=== PATIENT | female | born 1975 | race Caucasian/White ===

== ENCOUNTER 2017-01-05 13:44 | Outpatient (CLI) | payer OTHER, MEDICAID | END 2017-01-05 23:59 | DX: Z11.3 Encounter for screening for infections with a predominantly sexual mode of transmission (principal) ==

== ENCOUNTER 2017-03-22 08:42 | Outpatient (CLI) | payer OTHER, MEDICAID | END 2017-03-22 08:43 | disposition home or self-care (01) | DX: R10.11 Right upper quadrant pain (principal) ==

== ENCOUNTER 2017-04-23 11:52 | Outpatient (CLI) | payer OTHER, MEDICAID ==
--- NOTE | 2017-04-23 14:21 | Mammography Report ---
DIGITAL DIAGNOSTIC BILATERAL MAMMOGRAM: 04/23/2017 CLINICAL INDICATION: Bilateral breast pain. TECHNIQUE: Bilateral CC, MLO, true lateral views. The patient described the pain as extending from the axilla to the nipple on the right and from the axilla across the superior half of the left breast . As such, no markers were placed. COMPARISON: 09/04/2015, 10/12/2013, 10/10/2013, 03/18/2011. FINDINGS: The breasts again demonstrate heterogeneously dense fibroglandular parenchyma bilaterally. Intramammary lymph nodes are stable. A few coarse, typically benign calcifications are present. N o suspicious masses, clustered microcalcifications, or regions of architectural distortion are identi fied. IMPRESSION: BENIGN FINDINGS. RECOMMENDATION: Routine annual screening unless otherwise clinically indicated. BIRADS CATEGORY 2 - BENIGN FINDINGS. STANDARD QUALIFYING STATEMENTS 1. This examination was reviewed with the aid of Computer-Aided Detection (CAD). 2. A negative or benign imaging report should not delay biopsy if clinically suspicious findings are present. Consider surgical consultation if warranted. More than 5% of cancers are not identified by i maging. 3. Dense breasts may obscure an underlying neoplasm. JOB #: [id number] EXT JOB #:
== END 2017-04-23 11:53 | disposition home or self-care (01) ==
LOC: DI 11:52
PROVIDERS: ATTEND Family Medicine
DX: N64.4 Mastodynia (principal)
CPT/HCPCS: 77066

== ENCOUNTER 2017-05-18 14:40 | Outpatient (CLI) | payer OTHER, MEDICAID ==
[2017-05-18 20:19] LABS: ALBUMIN/GLOBULIN RATIO 1.2 (1.0-2.2); BILIRUBIN,TOTAL 0.2 mg/dL (0.2-1.0); BUN - BLOOD UREA NITROGEN 20 mg/dL (6-20); CALCIUM 8.9 mg/dL (8.5-10.3); CARBON DIOXIDE - CO2 23 mmol/L (21-32); CHLORIDE 106 mmol/L (101-111); CREATININE 1.1 mg/dL (0.4-1.0); GFR - MDRD 55 (>89); GLUCOSE 82 mg/dL (70-100); POTASSIUM 4.1 mmol/L (3.5-5.0); SODIUM 136 mmol/L (135-145); TOTAL PROTEIN 7.3 g/dL (6.7-8.2)
[2017-05-18 20:59] LABS: THYROID STIMULATING HORMONE 1.65 uIU/mL (0.34-5.60)
[2017-05-18 21:08] LABS: FOLLICLE STIMULATING HORMONE 5.13 mIU/mL
== END 2017-05-18 14:41 | disposition home or self-care (01) ==
LOC: LAB.WCP 14:40
PROVIDERS: ATTEND Family Medicine
DX: R10.11 Right upper quadrant pain (principal)
CPT/HCPCS: 36415; 80053; 83001; 84443

== ENCOUNTER 2017-07-07 15:40 | Outpatient (CLI) | payer OTHER, MEDICAID ==
[2017-07-07 19:05] LABS: BASOPHILS # (AUTO) 0.1 10^3/uL (0.0-0.1); BASOPHILS % (AUTO) 0.8 %; EOSINOPHILS # (AUTO) 0.4 10^3/uL (0.0-0.7); HCT - HEMATOCRIT 44.3 % (37.0-47.0); HGB - HEMOGLOBIN 14.5 g/dL (12.0-16.0); LYMPHOCYTES # (AUTO) 2.5 10^3/uL (1.5-3.5); LYMPHOCYTES % (AUTO) 20.3 %; MEAN CORPUSCULAR HEMOGLOBIN 29.4 pg (27.0-31.0); MEAN CORPUSCULAR HGB CONC 32.7 g/dL (32.0-36.0); MEAN PLATELET VOLUME 9.6 fL (7.9-10.8); MONOCYTES % (AUTO) 8.2 %; NEUTROPHILS # (AUTO) 8.3 10^3/uL (1.5-6.6); NEUTROPHILS % (AUTO) 67.7 %; NUCLEATED RED BLOOD CELLS AUTO 0.1 /100WBC; RED BLOOD COUNT 4.92 10^6/uL (4.20-5.40); RED CELL DISTRIBUTION WIDTH 14.6 % (12.0-15.0); UNCORRECTED WHITE BLOOD COUNT 12.2 x10^3/uL; WHITE BLOOD COUNT 12.2 x10^3/uL (4.8-10.8)
[2017-07-07 19:21] LABS: ALBUMIN/GLOBULIN RATIO 1.2 (1.0-2.2); BILIRUBIN,TOTAL 0.6 mg/dL (0.2-1.0); BUN - BLOOD UREA NITROGEN 15 mg/dL (6-20); CALCIUM 9.1 mg/dL (8.5-10.3); CARBON DIOXIDE - CO2 23 mmol/L (21-32); CHLORIDE 105 mmol/L (101-111); GFR - MDRD 61 (>89); GLUCOSE 83 mg/dL (70-100); POTASSIUM 4.2 mmol/L (3.5-5.0); SODIUM 136 mmol/L (135-145); TOTAL PROTEIN 7.2 g/dL (6.7-8.2)
[2017-07-07 19:50] LABS: THYROID STIMULATING HORMONE 1.48 uIU/mL (0.34-5.60)
[2017-07-08 10:11] LABS: TEST RESULT REPORT (())
== END 2017-07-07 15:41 | disposition home or self-care (01) ==
LOC: LAB.WCP 15:40
PROVIDERS: ATTEND Family Medicine
DX: R41.3 Other amnesia (principal)
CPT/HCPCS: 36415; 80050; 80306; 81599; 82607; 86140; 86592

== ENCOUNTER 2017-07-26 13:14 | Outpatient (CLI) | payer OTHER, MEDICAID ==
--- NOTE | 2017-07-26 15:20 | MRI Report ---
EXAM: MRI BRAIN WITHOUT CONTRAST EXAM DATE: 07/26/2017 02:26 PM. CLINICAL HISTORY: MEMORY LOSS, PSEUDOTUMOR CEREBRI. COMPARISON: MRI brain 12/20/2010 TECHNIQUE: Multiplanar, multisequence T1-weighted and fluid-sensitive MR sequences of the brain were performed. Sequences optimized for routine evaluation. Other: None. IV Contrast: None. FINDINGS: Brain Volume: Normal for age. Parenchyma/Dura: No masses, infarcts, or hemorrhage. No significant white matter disease. No parenchy mal microhemorrhages. Ventricles/Cisterns: Normal. No hydrocephalus. Sinuses: Moderate mucous retention cyst/polyps within the maxillary sinuses bilaterally. Bones: Normal. Other: There is very subtle flattening of the posterior sclera bilaterally (series 601 image 10), a n onspecific finding but seen with idiopathic intracranial hypertension (pseudotumor cerebri). IMPRESSION: 1. No evidence of an acute or subacute infarct, intracranial hemorrhage, mass/mass effect, midline sh ift, or hydrocephalus. No significant white matter disease. 2. Very subtle flattening of the posterior sclera bilaterally (series 601 image 10), a nonspecific fi nding but seen with idiopathic intracranial hypertension (pseudotumor cerebri). [facility] Referring Provider Line: [phone] SITE ID: [id number]
== END 2017-07-26 13:15 | disposition home or self-care (01) ==
LOC: DI 13:14
PROVIDERS: ATTEND Family Medicine
DX: G93.2 Benign intracranial hypertension (principal); R41.3 Other amnesia
CPT/HCPCS: 70551

== ENCOUNTER 2017-09-03 13:24 | Outpatient (CLI) | payer OTHER, MEDICAID ==
[2017-09-03 18:46] LABS: BASOPHILS # (AUTO) 0.1 10^3/uL (0.0-0.1); BASOPHILS % (AUTO) 1.1 %; EOSINOPHILS # (AUTO) 0.3 10^3/uL (0.0-0.7); EOSINOPHILS % (AUTO) 3.2 %; HCT - HEMATOCRIT 43.5 % (37.0-47.0); LYMPHOCYTES # (AUTO) 2.6 10^3/uL (1.5-3.5); LYMPHOCYTES % (AUTO) 24.9 %; MEAN CORPUSCULAR HEMOGLOBIN 29.4 pg (27.0-31.0); MEAN CORPUSCULAR HGB CONC 32.2 g/dL (32.0-36.0); MEAN CORPUSCULAR VOLUME 91.1 fL (81.0-99.0); MONOCYTES # (AUTO) 0.8 10^3/uL (0.0-1.0); MONOCYTES % (AUTO) 7.7 %; NEUTROPHILS # (AUTO) 6.7 10^3/uL (1.5-6.6); NEUTROPHILS % (AUTO) 63.1 %; NUCLEATED RED BLOOD CELLS AUTO 0.1 /100WBC; RED BLOOD COUNT 4.78 10^6/uL (4.20-5.40); RED CELL DISTRIBUTION WIDTH 14.4 % (12.0-15.0); UNCORRECTED WHITE BLOOD COUNT 10.6 x10^3/uL; WHITE BLOOD COUNT 10.6 x10^3/uL (4.8-10.8)
== END 2017-09-03 13:25 | disposition home or self-care (01) ==
LOC: LAB.WCP 13:24
PROVIDERS: ATTEND Family Medicine
DX: D72.829 Elevated white blood cell count, unspecified (principal)
CPT/HCPCS: 36415; 85025

== ENCOUNTER 2017-11-11 16:38 | Outpatient (CLI) | payer OTHER, MEDICAID | END 2017-11-11 16:39 | disposition critical access hospital (66) | LOC: EMS 16:38 | PROVIDERS: ATTEND Surgery | DX: S61.217A Laceration without foreign body of left little finger without damage to nail, initial encounter (principal); W25.XXXA Contact with sharp glass, initial encounter; Y93.E9 Activity, other interior property and clothing maintenance; Y92.039 Unspecified place in apartment as the place of occurrence of the external cause | CPT/HCPCS: A0425; A0429 ==

== ENCOUNTER 2017-11-11 17:11 | Emergency (ER) | payer OTHER, MEDICAID ==
[2017-11-11] MEDS ORDERED: TETANUS/DIPHTHERIA/PERTUSSIS 0.5 ML SYRINGE IM ONE (18:27)
[2017-11-11] MEDS ORDERED: BUFFERED LIDOCAINE 10 ML SYRINGE SUBQ STA (18:27)
--- NOTE | 2017-11-11 18:29 | ED Physician Documentation ---
PD HPI UPPER EXT INJURY - Stated complaint Stated Complaint: FINGER LAC - Chief complaint Chief Complaint: Ext Problem - History obtained from History obtained from: Patient - History of Present Illness Location: Other (Right-handed woman with unknown tetanus status was changing a light bulb today and a broken she has a laceration on the left pinky. No other injuries.) Review of Systems Constitutional: denies: Fever, Chills Throat: reports: Reviewed and negative Respiratory: reports: Reviewed and negative PD PAST MEDICAL HISTORY - Past Medical History Cardiovascular: None Respiratory: Shortness of breath Neuro: Headache/migraine Endocrine/Autoimmune: None GI: Other BAND SPLITTER: None : Other HEENT: Other Psych: Depression, Anxiety Musculoskeletal: Osteoarthritis, Fibromyalgia, Chronic back pain Derm: Rosacea, Other - Past Surgical History General: Other /BAND SPLITTER: Hysterectomy HEENT: Other - Present Medications Home Medications: Ambulatory Orders Medication Instructions Recorded Confirmed Ergocalciferol (Vitamin D2) 2,000 unit ORAL DAILY 04/20/15 11/11/17 [Vitamin D2] Gabapentin [Gralise] 600 mg ORAL TID 04/20/15 11/11/17 Melatonin 3 mg ORAL DAILY 04/20/15 11/11/17 Naproxen Sodium [Aleve] 220 mg ORAL DAILY 04/20/15 11/11/17 Pantoprazole [Protonix] 20 mg ORAL DAILY 04/20/15 11/11/17 Topiramate 75 mg ORAL QPM 04/20/15 11/11/17 traMADol [Ultram] 50 mg ORAL DAILY PRN 04/20/15 11/11/17 Bupropion HCl [Wellbutrin Xl] 300 mg PO DAILY 07/13/17 11/11/17 Dicyclomine [Bentyl] 10 mg PO ONCE PRN 07/13/17 11/11/17 Escitalopram Oxalate [Lexapro] 20 mg PO DAILY 07/13/17 11/11/17 Guanfacine HCl 2 mg PO QPM PRN 07/13/17 11/11/17 Lubiprostone [Amitiza] 8 mcg PO BID 07/13/17 11/11/17 Omeprazole [PriLOSEC] 20 mg PO DAILY 07/13/17 11/11/17 Propranolol [Inderal] 20 mg PO DAILY 07/13/17 11/11/17 - Allergies Allergies/Adverse Reactions: Allergies Allergy/AdvReac Type Severity Reaction Status Date / Time No Known Drug Allergies Allergy Verified 04/20/15 10:41 - Social History Does the pt smoke?: No Smoking Status: Never smoker Does the pt drink ETOH?: No Does the pt have substance abuse?: No - Immunizations Immunizations are current?: Yes PD ED PE NORMAL - Vitals Vital signs reviewed: Yes - General General: Alert and oriented X 3, No acute distress - Extremities Extremities: Other (There is a 1 cm laceration on the ulnar side of the left fifth digit at the level of the PIP without distal neurovascular compromise or evidence of tendon injury.) - Neuro Neuro: Alert and oriented X 3, Normal speech - Psych Psych: Normal mood, Normal affect Results - Vitals Vitals: Vital Signs - 24 hr 11/11/17 17:14 Temperature 36.8 C Heart Rate 100 Respiratory 17 Rate Blood Pressure 122/88 H O2 Saturation 97 Oxygen O2 Source Room air Procedures - Laceration (location) L 5th finger Length in cm: 1 Wound type: Linear Neurovascular status: Sensory intact, Motor intact, Vascular intact Anesthesia: Lidocaine 1% (Digital block with buffered anesthetic, excellent anesthesia) Wound Preparation: Irrigated copiously NS Skin layer closure: Nylon, Interrupted, Size #-0 - enter number (5-0), Sutures - enter # (3) Other: Patient tolerated well, No complications, Neurovascular intact, Tetanus booster given Complexity: Simple Departure - Departure Disposition: 01 Home, Self Care Clinical Impression: Laceration of finger of left hand Qualifiers: Encounter type: initial encounter Finger: little finger Damage to nail status: without damage Foreign body presence: without foreign body Qualified Code(s): S61.217A - Laceration without foreign body of left little finger without damage to nail, initial encounter Condition: Good Record reviewed to determine appropriate education?: Yes Instructions: ED Laceration Hand Comments: Come back for any signs of infection which would include: Redness, swelling, drainage, increased pain, or fevers. Follow-up with your physician in 14 days for suture removal. Your blood pressure was elevated today on check into the emergency department. This does not mean that you have hypertension, it is a common phenomenon to come to the emergency department and have elevated blood pressure. I recommend that you see your primary care physician within the week to have it rechecked when you are feeling better.
[2017-11-11 19:08] VITALS: BP 110/70
== END 2017-11-11 19:15 | disposition home or self-care (01) ==
LOC: EDUNIT# → SUPCPDRO 17:11 → ED 17:11
DX: S61.217A Laceration without foreign body of left little finger without damage to nail, initial encounter (principal); W25.XXXA Contact with sharp glass, initial encounter; Y92.019 Unspecified place in single-family (private) house as the place of occurrence of the external cause; M19.90 Unspecified osteoarthritis, unspecified site; M79.7 Fibromyalgia; R03.0 Elevated blood-pressure reading, without diagnosis of hypertension; Z23 Encounter for immunization
CPT/HCPCS: 12001; 90471; 99283

== ENCOUNTER 2017-11-30 09:26 | Outpatient (CLI) | payer OTHER, MEDICAID ==
[2017-11-30 12:37] LABS: BASOPHILS # (AUTO) 0.1 10^3/uL (0.0-0.1); BASOPHILS % (AUTO) 1.3 %; EOSINOPHILS # (AUTO) 0.4 10^3/uL (0.0-0.7); EOSINOPHILS % (AUTO) 3.4 %; HGB - HEMOGLOBIN 14.6 g/dL (12.0-16.0); LYMPHOCYTES # (AUTO) 2.3 10^3/uL (1.5-3.5); LYMPHOCYTES % (AUTO) 21.7 %; MEAN CORPUSCULAR HEMOGLOBIN 29.1 pg (27.0-31.0); MEAN CORPUSCULAR HGB CONC 32.7 g/dL (32.0-36.0); MEAN PLATELET VOLUME 9.9 fL (7.9-10.8); MONOCYTES % (AUTO) 9.8 %; NEUTROPHILS # (AUTO) 6.6 10^3/uL (1.5-6.6); NEUTROPHILS % (AUTO) 63.8 %; PLT - PLATELET COUNT 280 10^3/uL (130-450); RED BLOOD COUNT 5.03 10^6/uL (4.20-5.40); RED CELL DISTRIBUTION WIDTH 14.6 % (12.0-15.0); WHITE BLOOD COUNT 10.4 x10^3/uL (4.8-10.8)
[2017-11-30 13:01] LABS: ALBUMIN/GLOBULIN RATIO 1.2 (1.0-2.2); BILIRUBIN,TOTAL 0.5 mg/dL (0.2-1.0); CREATININE 1.2 mg/dL (0.4-1.0); TOTAL PROTEIN 7.4 g/dL (6.7-8.2)
== END 2017-11-30 09:27 | disposition home or self-care (01) ==
LOC: LAB.WCP 09:26
PROVIDERS: ATTEND Family Medicine
DX: D72.829 Elevated white blood cell count, unspecified (principal); R53.83 Other fatigue; R40.0 Somnolence; K58.9 Irritable bowel syndrome, unspecified; G93.2 Benign intracranial hypertension
CPT/HCPCS: 36415; 80053; 85025

== ENCOUNTER 2017-12-02 13:25 | Outpatient (CLI) | payer OTHER, MEDICAID ==
[2017-12-02 13:24] LABS: MUDS CUTOFF CONCENTRATIONS CUTOFF CONC BELOW:
[2017-12-02 18:57] LABS: AMPHETAMINE SCREEN,URINE NEGATIVE (NEGATIVE); BENZODIAZEPINES SCREEN, URINE NEGATIVE (NEGATIVE); COCAINE SCREEN URINE NEGATIVE (NEGATIVE); METHADONE SCREEN, URINE NEGATIVE (NEGATIVE); METHAMPHETAMINES SCREEN, URINE NEGATIVE (NEGATIVE); OPIATE SCREEN, URINE NEGATIVE (NEGATIVE); OXYCODONE SCREEN, URINE NEGATIVE (NEGATIVE); PROPOXYPHENE SCREEN, URINE NEGATIVE (NEGATIVE); TRICYCLIC ANTIDEPRESSANT,URINE NEGATIVE (NEGATIVE)
[2017-12-02 19:17] LABS: CHOL/HDL RATIO 5.9 (<4.4); CHOLESTEROL 243 mg/dL; HDL CHOLESTEROL 41 mg/dL; LDL CHOLESTEROL,CALCULATED 169 mg/dL; LDL/HDL RATIO 4.1 (<4.4); VLDL CHOLESTEROL 33 mg/dL
== END 2017-12-02 13:26 | disposition home or self-care (01) ==
LOC: LAB.WCP 13:25
PROVIDERS: ATTEND Psychiatry & Neurology Psychiatry
DX: Z00.00 Encounter for general adult medical examination without abnormal findings (principal); F33.2 Major depressive disorder, recurrent severe without psychotic features; F43.10 Post-traumatic stress disorder, unspecified; F41.9 Anxiety disorder, unspecified; G47.00 Insomnia, unspecified
CPT/HCPCS: 36415; 80061; 80306; 83721; 84443

== ENCOUNTER 2017-12-08 15:29 | Outpatient (CLI) | payer OTHER, MEDICAID ==
--- NOTE | 2017-12-09 12:38 | Ultrasound Report ---
DATE OF SERVICE: 12/08/2017 RENAL ULTRASOUND: 12/08/2017 CLINICAL INDICATION: Chronic kidney disease, stage III. TECHNIQUE: Real-time scanning was performed with branch service representative static images obtained. FINDINGS: The right kidney measures 11.4 x 5.0 x 4.3 cm, and is unremarkable. The left kidney measures 11.6 x 4.7 x 3.7 cm, and demonstrates a 2 cm parapelvic cyst. No hydronephrosis, solid renal lesion, or perinephric collection is seen. Prevoid, the bladder measures 13.9 x 11.1 x 9.3 cm, yielding a prevoid volume of 750 mL The bladder wall appears normal. Bilateral ureteral jets are visualized. Postvoid residual was 14 mL IMPRESSION: INCIDENTAL LEFT PARAPELVIC CYST. TD: 12/09/2017 12:36
== END 2017-12-08 15:30 | disposition home or self-care (01) ==
LOC: DI 15:29
PROVIDERS: ATTEND Family Medicine
DX: N18.3 Chronic kidney disease, stage 3 (moderate) (principal)
CPT/HCPCS: 76770

== ENCOUNTER 2018-03-14 08:00 | Outpatient (CLI) | payer OTHER, MEDICAID ==
[2018-03-14 18:58] LABS: BASOPHILS # (AUTO) 0.1 10^3/uL (0.0-0.1); BASOPHILS % (AUTO) 0.7 %; EOSINOPHILS # (AUTO) 0.2 10^3/uL (0.0-0.7); EOSINOPHILS % (AUTO) 1.7 %; HGB - HEMOGLOBIN 14.2 g/dL (12.0-16.0); LYMPHOCYTES % (AUTO) 19.1 %; MEAN CORPUSCULAR HEMOGLOBIN 28.7 pg (27.0-31.0); MEAN CORPUSCULAR HGB CONC 31.3 g/dL (32.0-36.0); MEAN CORPUSCULAR VOLUME 91.6 fL (81.0-99.0); MEAN PLATELET VOLUME 9.4 fL (7.9-10.8); MONOCYTES # (AUTO) 0.9 10^3/uL (0.0-1.0); MONOCYTES % (AUTO) 8.3 %; NEUTROPHILS # (AUTO) 7.5 10^3/uL (1.5-6.6); NEUTROPHILS % (AUTO) 70.2 %; PLT - PLATELET COUNT 309 10^3/uL (130-450); RED BLOOD COUNT 4.96 10^6/uL (4.20-5.40); RED CELL DISTRIBUTION WIDTH 15.3 % (12.0-15.0); WHITE BLOOD COUNT 10.6 x10^3/uL (4.8-10.8)
[2018-03-14 19:08] LABS: CALCIUM 9.2 mg/dL (8.5-10.3)
== END 2018-03-14 08:01 | disposition home or self-care (01) ==
LOC: LAB.WCP 08:00
PROVIDERS: ATTEND Family Medicine
DX: N18.3 Chronic kidney disease, stage 3 (moderate) (principal)
CPT/HCPCS: 36415; 80048; 85025

== ENCOUNTER 2018-08-24 18:14 | Emergency (ER) | payer OTHER, MEDICAID ==
--- NOTE | 2018-08-24 18:57 | XRAY Report ---
Reason: productive cough Procedure Date: 08/24/2018 Accession Number: [id number] / [id number] Procedure: XR - Chest 2 View X-Ray CPT Code: 41765 FULL RESULT: EXAM: CHEST RADIOGRAPHY EXAM DATE: 08/24/2018 06:37 PM. CLINICAL HISTORY: Productive cough. COMPARISON: 10/06/2011. TECHNIQUE: 2 views. FINDINGS: Lungs/Pleura: New 1.4 cm nodular appearing density adjacent to the left heart border at the left lower lung. No dense consolidation. No large effusion or pneumothorax. No pulmonary edema. Mediastinum: Heart and mediastinal contours are unremarkable. Other: None. IMPRESSION: New apparent nodular density in the left lower lung measuring 1.4 cm, suspect focal atelectasis. Follow-up radiographs our recommended in 6-8 weeks. If persistent, CT scan of the chest is recommended. Otherwise, no acute radiographic abnormalities. [facility]
--- NOTE | 2018-08-24 19:52 | ED Physician Documentation ---
PD HPI URI - Stated complaint Stated Complaint: COUGH/FLEM - Chief complaint Chief Complaint: Resp - Additional information Additional information: 42-year-old female presents the emergency department with URI symptoms and a productive cough. The patient's symptoms have been ongoing for the past several days. No reports of difficulty breathing or wheezing. No reports of fevers. The patient has felt generally ill. No chest pain. No peripheral edema or unilateral leg swelling. Symptoms are described as mild. The patient reports overall improvement in her symptoms but is concerned about her cough. Symptoms are described as mild. Review of Systems Constitutional: reports: Fatigue. denies: Fever Eyes: denies: Discharge Ears: denies: Ear pain Nose: reports: Rhinorrhea / runny nose, Congestion Throat: denies: Sore throat Cardiac: denies: Chest pain / pressure Respiratory: reports: Cough. 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 : Other HEENT: Other Psych: Depression, Anxiety Musculoskeletal: Osteoarthritis, Fibromyalgia, Chronic back pain Derm: Rosacea, Other Other Past Medical History: IBS, Chronic Constipation; Kidney disease - Past Surgical History Past Surgical History: Yes General: Other /PIECE GOODS PACKER: Hysterectomy HEENT: Other - Present Medications Home Medications: Ambulatory Orders Medication Instructions Recorded Confirmed Ergocalciferol (Vitamin D2) 2,000 unit ORAL DAILY 04/20/15 11/11/17 [Vitamin D2] Naproxen Sodium [Aleve] 220 mg ORAL DAILY 04/20/15 11/11/17 RX: Gabapentin [Gralise] 600 mg ORAL TID 04/20/15 11/11/17 RX: Melatonin 3 mg ORAL DAILY 04/20/15 11/11/17 RX: Pantoprazole [Protonix] 20 mg ORAL DAILY 04/20/15 11/11/17 RX: Topiramate 75 mg ORAL QPM 04/20/15 11/11/17 RX: traMADol [Ultram] 50 mg ORAL DAILY PRN 04/20/15 11/11/17 Bupropion HCl [Wellbutrin Xl] 300 mg PO DAILY 07/13/17 11/11/17 Dicyclomine [Bentyl] 10 mg PO ONCE PRN 07/13/17 11/11/17 Escitalopram Oxalate [Lexapro] 20 mg PO DAILY 07/13/17 11/11/17 Lubiprostone [Amitiza] 8 mcg PO BID 07/13/17 11/11/17 Omeprazole [PriLOSEC] 20 mg PO DAILY 07/13/17 11/11/17 Propranolol [Inderal] 20 mg PO DAILY 07/13/17 11/11/17 RX: Guanfacine HCl 2 mg PO QPM PRN 07/13/17 11/11/17 Benzonatate [Tessalon Perle] 100 - 200 mg PO TID PRN #30 capsule 08/24/18 - Allergies Allergies/Adverse Reactions: Allergies Allergy/AdvReac Type Severity Reaction Status Date / Time No Known Drug Allergies Allergy Verified 08/24/18 19:32 - Social History Does the pt smoke?: No Smoking Status: Never smoker Does the pt drink ETOH?: No Does the pt have substance abuse?: No - Immunizations Immunizations are current?: Yes - POLST Patient has POLST: No PD ED PE NORMAL - General General: Alert and oriented X 3, No acute distress - HEENT HEENT: Atraumatic, PERRL, EOMI, Ears normal - Cardiac Cardiac: RRR - Respiratory Respiratory: No respiratory distress, Clear bilaterally - Derm Derm: Normal color - Extremities Extremities: No deformity - Neuro Neuro: Alert and oriented X 3, Normal speech - Psych Psych: Normal affect Results - Vitals Vitals: Vital Signs - 24 hr 08/24/18 08/24/18 18:17 19:56 Temperature 35.9 C L 36.3 C L Heart Rate 111 H 98 Respiratory 16 18 Rate Blood Pressure 125/98 H 126/86 H O2 Saturation 97 98 Oxygen O2 Source Room air - Rads (name of study) CXR Radiology: Final report received (New apparent nodular density in the left lower lung measuring 1.4 cm, suspect focal atelectasis. Follow-up radiographs our recommended in 6-8 weeks. If persistent, CT scan of the chest is recommended. Otherwise, no acute radiographic abnormalities. ) PD MEDICAL DECISION MAKING - ED course ED course: The patient's symptoms seem to represent a viral etiology, the patient appears appropriate for discharge and ongoing outpatient management. I discussed with her the incidental finding seen on x-ray and the recommendations from the radiologist. The patient understands and agrees. I discussed warning signs and recommended returning to the emergency department for any worsening or any concerns. Departure - Departure Disposition: 01 Home, Self Care Clinical Impression: Viral URI with cough, Pulmonary nodule Condition: Good Instructions: ED URI Viral Follow-Up: Jeffery Gould DO [Primary Care Provider] - Within 1 week (Please ask your PMD to arrange for a repeat Chest X-Ray in 6-8 weeks ) Prescriptions: Benzonatate [Tessalon Perle] 100 - 200 mg PO TID PRN #30 capsule PRN Reason: Cough Comments: Please return to the Emergency Department for worsening symptoms or any concerns Discharge Date/Time: 08/24/18 19:57
[2018-08-24 19:58] VITALS: BP 126/86
== END 2018-08-24 19:57 | disposition home or self-care (01) ==
LOC: ED 18:14
DX: J06.9 Acute upper respiratory infection, unspecified (principal); R91.1 Solitary pulmonary nodule
CPT/HCPCS: 71046; 99283

== ENCOUNTER 2018-10-14 13:28 | Outpatient (CLI) | payer OTHER, MEDICAID ==
--- NOTE | 2018-10-14 15:21 | XRAY Report ---
Reason: LLL DENSITY Procedure Date: 10/14/2018 Accession Number: [id number] / [id number] Procedure: XR - Chest 2 View X-Ray CPT Code: 52955 FULL RESULT: EXAM: CHEST RADIOGRAPHY EXAM DATE: 10/14/2018 01:43 PM. CLINICAL HISTORY: Left lower lobe nodular density on previous radiograph, follow-up. COMPARISON: Chest 2 views 08/24/2018 6:26 PM. TECHNIQUE: 2 views. FINDINGS: Lungs/Pleura: No focal opacities evident. No pleural effusion. No pneumothorax. Normal volumes. Mediastinum: Heart and mediastinal contours are unremarkable. Other: None. IMPRESSION: Normal 2-view chest radiography. [facility]
== END 2018-10-14 13:29 | disposition home or self-care (01) ==
LOC: DI 13:28
PROVIDERS: ATTEND Family Medicine
DX: R91.8 Other nonspecific abnormal finding of lung field (principal)
CPT/HCPCS: 71046

== ENCOUNTER 2018-12-07 11:03 | Outpatient (CLI) | payer OTHER, MEDICAID ==
--- NOTE | 2018-12-08 08:54 | Mammography Report ---
Reason: SCREENING MAMMO Procedure Date: 12/07/2018 Accession Number: [id number] / [id number] Procedure: ANNEMARIE - Screening Mammo w/Jovani CPT Code: FULL RESULT: EXAM: Screening Mammo w/Jovani DATE: 12/07/2018 12:09 PM CLINICAL HISTORY: Screening encounter. No reported risk factors. TECHNIQUE: Bilateral CC and MLO views were obtained. COMPARISON: 04/23/2017 through 03/18/2011. FINDINGS: The breasts demonstrate scattered fibroglandular densities bilaterally. A few bilateral intramammary lymph nodes are stable, typically benign finding. No suspicious masses, clustered microcalcifications, or regions of architectural distortion are identified. IMPRESSION: Benign findings RECOMMENDATION: Routine annual screening unless otherwise clinically indicated. BIRADS CATEGORY 2: Benign findings STANDARD QUALIFYING STATEMENTS: 1. This examination was not reviewed with the aid of Computer-Aided Detection (CAD). 2. A negative or benign imaging report should not preclude biopsy if clinically suspicious findings are present. 3. Dense breasts may obscure an underlying neoplasm. 4. This examination was reviewed with the aid of 3D breast imaging (tomosynthesis).
== END 2018-12-07 11:04 | disposition home or self-care (01) ==
LOC: DI 11:03
DX: Z12.31 Encounter for screening mammogram for malignant neoplasm of breast (principal)
CPT/HCPCS: 77063; 77067

== ENCOUNTER 2018-12-26 08:00 | Outpatient (CLI) | payer OTHER, MEDICAID ==
[2018-12-26 18:57] LABS: BASOPHILS # (AUTO) 0.1 10^3/uL (0.0-0.1); BASOPHILS % (AUTO) 1.2 %; EOSINOPHILS # (AUTO) 0.5 10^3/uL (0.0-0.7); EOSINOPHILS % (AUTO) 5.2 %; HGB - HEMOGLOBIN 13.8 g/dL (12.0-16.0); LYMPHOCYTES % (AUTO) 20.9 %; MEAN CORPUSCULAR HGB CONC 31.6 g/dL (32.0-36.0); MEAN CORPUSCULAR VOLUME 94.8 fL (81.0-99.0); MEAN PLATELET VOLUME 9.9 fL (7.9-10.8); MONOCYTES % (AUTO) 9.8 %; NEUTROPHILS # (AUTO) 6.1 10^3/uL (1.5-6.6); NEUTROPHILS % (AUTO) 62.9 %; PLT - PLATELET COUNT 308 10^3/uL (130-450); RED BLOOD COUNT 4.61 10^6/uL (4.20-5.40); RED CELL DISTRIBUTION WIDTH 14.1 % (12.0-15.0); WHITE BLOOD COUNT 9.7 x10^3/uL (4.8-10.8)
== END 2018-12-26 23:59 | disposition home or self-care (01) ==
LOC: LAB.WCP 08:00
PROVIDERS: ATTEND Physician Assistant
DX: D72.829 Elevated white blood cell count, unspecified (principal)
CPT/HCPCS: 36415; 85025

== ENCOUNTER 2019-02-07 08:00 | Outpatient (CLI) | payer OTHER, MEDICAID ==
[2019-02-07 18:55] LABS: BASOPHILS # (AUTO) 0.1 10^3/uL (0.0-0.1); EOSINOPHILS # (AUTO) 0.5 10^3/uL (0.0-0.7); EOSINOPHILS % (AUTO) 5.3 %; HGB - HEMOGLOBIN 13.5 g/dL (12.0-16.0); LYMPHOCYTES # (AUTO) 2.3 10^3/uL (1.5-3.5); LYMPHOCYTES % (AUTO) 23.2 %; MEAN CORPUSCULAR HEMOGLOBIN 29.3 pg (27.0-31.0); MEAN CORPUSCULAR VOLUME 91.7 fL (81.0-99.0); MEAN PLATELET VOLUME 9.2 fL (7.9-10.8); MONOCYTES # (AUTO) 0.8 10^3/uL (0.0-1.0); MONOCYTES % (AUTO) 7.7 %; NEUTROPHILS # (AUTO) 6.2 10^3/uL (1.5-6.6); NEUTROPHILS % (AUTO) 62.8 %; PLT - PLATELET COUNT 309 10^3/uL (130-450); RED BLOOD COUNT 4.59 10^6/uL (4.20-5.40); RED CELL DISTRIBUTION WIDTH 14.7 % (12.0-15.0); WHITE BLOOD COUNT 9.9 x10^3/uL (4.8-10.8)
[2019-02-07 19:08] LABS: HB2 TOTAL 14.4 g/dL; HEMOGLOBIN A1C 0.58 g/dL; HEMOGLOBIN A1C % 5.8 % (4.6-6.2)
[2019-02-07 19:13] LABS: ALBUMIN 3.7 g/dL (3.2-5.5); ALKALINE PHOSPHATASE 54 IU/L (42-121); ALT ALANINE AMINOTRANSFERASE 32 IU/L (10-60); AST ASPARTATE AMINOTRANSFERASE 30 IU/L (10-42); BILIRUBIN,TOTAL 0.6 mg/dL (0.2-1.0); BUN - BLOOD UREA NITROGEN 16 mg/dL (6-20); CALCIUM 8.5 mg/dL (8.5-10.3); CARBON DIOXIDE - CO2 22 mmol/L (21-32); CHLORIDE 104 mmol/L (101-111); CHOL/HDL RATIO 5.8 (<4.4); CHOLESTEROL 236 mg/dL; CREATININE 0.8 mg/dL (0.4-1.0); GFR - MDRD 78 (>89); GLUCOSE 96 mg/dL (70-100); HDL CHOLESTEROL 41 mg/dL; LDL CHOLESTEROL,CALCULATED 133 mg/dL; LDL/HDL RATIO 3.2 (<4.4); SODIUM 135 mmol/L (135-145); TOTAL PROTEIN 7.3 g/dL (6.7-8.2); URIC ACID 6.6 mg/dL (2.6-7.2); VLDL CHOLESTEROL 62 mg/dL
[2019-02-07 19:16] LABS: RHEUMATOID FACTOR POSITIVE (Negative)
[2019-02-10 14:20] LABS: ANA SCREEN NEGATIVE (NEGATIVE)
== END 2019-02-07 23:59 ==
LOC: LAB.WCP 08:00
PROVIDERS: ATTEND Physician Assistant
DX: Z00.00 Encounter for general adult medical examination without abnormal findings (principal); E78.5 Hyperlipidemia, unspecified; M25.549 Pain in joints of unspecified hand
CPT/HCPCS: 36415; 80053; 80061; 82607; 83036; 83721; 84443; 84550; 85025; 85651; 86038; 86200; 86430

== ENCOUNTER 2019-02-14 20:42 | Outpatient (CLI) | payer OTHER, MEDICAID ==
--- NOTE | 2019-02-15 00:39 | Ultrasound Report ---
Reason: CLAUDICATION BILATREAL, DYSLIPIDEMIA Procedure Date: 02/14/2019 Accession Number: [id number] / [id number] Procedure: US - Duplex Lwr Ext Arterial Bilat CPT Code: FULL RESULT: EXAM: BILATERAL LOWER EXTREMITY ARTERIAL DOPPLER ULTRASOUND EXAM DATE: 02/14/2019 10:15 PM. CLINICAL HISTORY: Claudication bilateral, dyslipidemia. COMPARISON: None. TECHNIQUE: Real-time sonographic vascular imaging was performed by the clinical biochemical geneticist, utilizing color-flow, Doppler flow, and spectral analysis. Multiple commissary representative static images were saved for review. FINDINGS: There is triphasic and biphasic flow throughout the arterial systems of both lower extremities. Velocities appear normal. No stenosis or occlusion identified. Right Leg: PEG DRIVER: PSV 146 cm/sec. Triphasic waveform. PSFA: PSV 92 cm/sec. Triphasic waveform. MSFA: PSV 96 cm/sec. Triphasic waveform. DSFA: PSV 81 cm/sec. Triphasic waveform. PFA: PSV 85 cm/sec. Triphasic waveform. POP: PSV 49 cm/sec. Triphasic waveform. ADALI: PSV 58 cm/sec. Biphasic waveform. OPERATIONS SUPPORT REPRESENTATIVE: PSV 17 cm/sec.Biphasic waveform. PER: PSV 77 cm/sec. Triphasic waveform. DPA: PSV 10 cm/sec. Biphasic waveform. Left Leg: PEG DRIVER: PSV 96 cm/sec. Triphasic waveform. PSFA: PSV 96 cm/sec. Triphasic waveform. MSFA: PSV 116 cm/sec. Triphasic waveform. DSFA: PSV 99 cm/sec. Triphasic waveform. PFA: PSV 56 cm/sec. Triphasic waveform. POP: PSV 57 cm/sec. Triphasic waveform. ADALI: PSV 59 cm/sec. Biphasic waveform. OPERATIONS SUPPORT REPRESENTATIVE: PSV 24 cm/sec.Biphasic waveform. PER: PSV 45 cm/sec. Biphasic waveform. DPA: PSV 18 cm/sec. Biphasic waveform. IMPRESSION: 1. No stenosis or occlusion identified bilaterally. [facility]
== END 2019-02-14 20:43 | disposition home or self-care (01) ==
LOC: DI 20:42
PROVIDERS: ATTEND Physician Assistant
DX: I73.9 Peripheral vascular disease, unspecified (principal); E78.5 Hyperlipidemia, unspecified
CPT/HCPCS: 93925

== ENCOUNTER 2019-02-17 12:51 | Outpatient (CLI) | payer OTHER, MEDICAID ==
--- NOTE | 2019-02-17 15:07 | XRAY Report ---
Reason: FOOT PAIN,CHRONIC Procedure Date: 02/17/2019 Accession Number: [id number] / [id number] Procedure: XR - Foot 2 View BILAT CPT Code: FULL RESULT: EXAMS: 1. RIGHT FOOT RADIOGRAPHY 2. LEFT FOOT RADIOGRAPHY EXAM DATE: 02/17/2019 01:22 PM. CLINICAL HISTORY: Chronic bilateral foot pain with walking for 1 year, ankle pain for 1 month. COMPARISON: None. TECHNIQUE: 3 views each foot. FINDINGS: Right: Bones: Posterior calcaneal enthesopathy is noted. No fractures or bone lesions. Joints: Normal. No subluxations. Soft Tissues: Normal. No soft tissue swelling. Left: Bones: Posterior calcaneal enthesopathy. No fractures or bone lesions. Joints: Normal. No subluxations. Soft Tissues: Normal. No soft tissue swelling. IMPRESSION: Bilateral posterior calcaneal enthesopathy at the insertion of the Achilles tendon. [facility]
== END 2019-02-17 12:52 | disposition home or self-care (01) ==
LOC: DI 12:51
PROVIDERS: ATTEND Physician Assistant
DX: M77.31 Calcaneal spur, right foot (principal); M77.32 Calcaneal spur, left foot

== ENCOUNTER 2019-03-09 07:00 | Emergency (ER) | payer OTHER, MEDICAID ==
[2019-03-09 07:16] VITALS: BP 134/93
--- NOTE | 2019-03-09 07:40 | ED Physician Documentation ---
PD HPI SKIN - Stated complaint Stated Complaint: SORE ON BACK OF NECK - Chief complaint Chief Complaint: Wound - History obtained from History obtained from: Patient - History of Present Illness Timing - onset: How many days ago (3) Timing - duration: Days (3) Timing - details: Gradual onset, Still present Location: Neck Quality / character: Painful, Discolored, Crusted Improved by: Other (warm compress) Associated symptoms: No: Fever, Myalgias, Joint pain, Headache Similar symptoms before: Diagnosis (acne) Recently seen: Not recently seen - Additional information Additional information: 43-year-old female with a history of polycystic ovarian syndrome and fibromyalgia has developed a spot on the back of her neck that is tender and erythematous she has been using a warm compress to try to bring it to ahead and nothing has changed. Review of Systems Constitutional: denies: Fever Eyes: denies: Decreased vision Ears: denies: Ear pain Nose: denies: Rhinorrhea / runny nose, Congestion Throat: denies: Sore throat Respiratory: denies: Cough GI: denies: Vomiting Skin: reports: Lesions Musculoskeletal: reports: Neck pain. denies: Back pain, Extremity pain PD PAST MEDICAL HISTORY - Past Medical History Past Medical History: Yes Cardiovascular: None, Hypertension Respiratory: Shortness of breath Neuro: Other Endocrine/Autoimmune: None, Other GI: GERD, Other SKID WRAPPER: None : Other HEENT: Other Psych: Depression, Anxiety Musculoskeletal: Osteoarthritis, Fibromyalgia, Chronic back pain Derm: Rosacea, Other - Past Surgical History Past Surgical History: Yes General: Other /SKID WRAPPER: Hysterectomy HEENT: Other - Present Medications Home Medications: Ambulatory Orders Medication Instructions Recorded Confirmed Gabapentin [Gralise] 600 mg ORAL BID 04/20/15 03/09/19 Melatonin 5 mg ORAL DAILY 04/20/15 03/09/19 Naproxen Sodium [Aleve] 220 mg ORAL DAILY 04/20/15 03/09/19 Topiramate 75 mg ORAL QPM 04/20/15 03/09/19 traMADol [Ultram] 50 mg ORAL BID 04/20/15 03/09/19 Bupropion HCl [Wellbutrin Xl] 315 mg PO DAILY 07/13/17 03/09/19 Dicyclomine [Bentyl] 10 mg PO ONCE PRN 07/13/17 03/09/19 Guanfacine HCl 2 mg PO QPM PRN 07/13/17 03/09/19 Lubiprostone [Amitiza] 24 mcg PO BID 07/13/17 03/09/19 Omeprazole [PriLOSEC] 20 mg PO DAILY 07/13/17 03/09/19 Propranolol [Inderal] 20 mg PO DAILY 07/13/17 03/09/19 Biotin 5,000 mcg PO DAILY 01/30/19 03/09/19 Multivit-Min/Iron Fum/Folic AC 1 tab PO DAILY 01/30/19 03/09/19 [Vwzzs-Qkguhdg-Hrrmumut Tablet] Cephalexin [Keflex] 500 mg PO Q6H #28 capsule 03/09/19 Meloxicam 15 mg PO DAILY 03/09/19 03/09/19 Mupirocin Calcium [Mupirocin] 1 gm TP BID #15 cream..g. 03/09/19 - Allergies Allergies/Adverse Reactions: Allergies Allergy/AdvReac Type Severity Reaction Status Date / Time No Known Drug Allergies Allergy Verified 03/09/19 07:16 - Social History Does the pt smoke?: No Smoking Status: Never smoker Does the pt drink ETOH?: No Does the pt have substance abuse?: No - Immunizations Immunizations are current?: Yes - POLST Patient has POLST: No PD ED PE NORMAL - Vitals Vital signs reviewed: Yes (hypertensive mild ) - General General: Alert and oriented X 3, No acute distress, Well developed/nourished - HEENT HEENT: Atraumatic, PERRL, EOMI - Neck Neck: Supple, no meningeal sign, No bony TTP, Other (over the right side of the neck at the junction to the shoulder there is a patch of skin that is erythematous with a fine honey crusting. The area is flat and there is no fluctuance or drainage. ) - Respiratory Respiratory: No respiratory distress - Derm Derm: Normal color, Warm and dry, No rash - Extremities Extremities: No deformity, No edema - Neuro Neuro: Alert and oriented X 3, epoxy coatings installer 2-12 intact, No motor deficit, No sensory deficit, Normal speech Eye Opening: Spontaneous Motor: Obeys Commands Verbal: Oriented GCS Score: 15 - Psych Psych: Normal mood, Normal affect Results - Vitals Vitals: Vital Signs - 24 hr 03/09/19 07:12 Temperature 36.8 C Heart Rate 92 Respiratory 20 Rate Blood Pressure 134/93 H O2 Saturation 95 Oxygen O2 Source Room air PD MEDICAL DECISION MAKING - ED course Complexity details: considered differential, d/w patient ED course: 43 y/o female with a fine honey crusted lesion to the right side of the neck appears to have impetigo. We will put her on a course of keflex and provide bactroban. Departure - Departure Disposition: 01 Home, Self Care Clinical Impression: Impetigo Condition: Stable Instructions: ED Staph Infec Abx Tx Only Follow-Up: Cydney Travis PA [Primary Care Provider] - Prescriptions: Cephalexin [Keflex] 500 mg PO Q6H #28 capsule Mupirocin Calcium [Mupirocin] 1 gm TP BID #15 cream..g.
== END 2019-03-09 07:52 | disposition home or self-care (01) ==
LOC: ED 07:00
DX: L01.00 Impetigo, unspecified (principal); I10 Essential (primary) hypertension; M79.7 Fibromyalgia; E28.2 Polycystic ovarian syndrome
CPT/HCPCS: 99283

== ENCOUNTER 2019-07-25 11:21 | Outpatient (CLI) | payer OTHER, MEDICAID ==
--- NOTE | 2019-07-26 11:24 | XRAY Report ---
Reason: CONSTIPATION Procedure Date: 07/25/2019 Accession Number: [id number] / [id number] Procedure: WCP - Abdomen 2 View X-Ray CPT Code: 12974 FULL RESULT: EXAM: ABDOMEN RADIOGRAPHY EXAM DATE: 07/25/2019 11:21 AM. CLINICAL HISTORY: CONSTIPATION. Abdominal pain COMPARISON: None. TECHNIQUE: 2 views. FINDINGS: Bowel Gas Pattern: Copious fecal material throughout the colon .No dilated loops or abnormal fluid levels. Free Air: None. Other: Negative bony structures. No abnormal calcifications. IMPRESSION: Nonspecific 2-view abdomen x-ray with copious fecal material throughout the colon. [facility]
== END 2019-07-25 23:59 | disposition home or self-care (01) ==
LOC: DI.WCP 11:21 → EDSTATUS 13:37 → DI.WCP 23:59
PROVIDERS: ATTEND Family Medicine
DX: K59.00 Constipation, unspecified (principal)
CPT/HCPCS: 74019

== ENCOUNTER 2019-08-04 08:00 | Outpatient (CLI) | payer OTHER, MEDICAID ==
[2019-08-04 18:54] LABS: BASOPHILS # (AUTO) 0.1 10^3/uL (0.0-0.1); BASOPHILS % (AUTO) 0.8 %; EOSINOPHILS # (AUTO) 0.2 10^3/uL (0.0-0.7); EOSINOPHILS % (AUTO) 1.9 %; HGB - HEMOGLOBIN 14.2 g/dL (12.0-16.0); LYMPHOCYTES # (AUTO) 2.4 10^3/uL (1.5-3.5); LYMPHOCYTES % (AUTO) 21.5 %; MEAN CORPUSCULAR HEMOGLOBIN 28.5 pg (27.0-31.0); MEAN CORPUSCULAR HGB CONC 29.8 g/dL (32.0-36.0); MEAN CORPUSCULAR VOLUME 95.4 fL (81.0-99.0); MEAN PLATELET VOLUME 11.9 fL (7.9-10.8); MONOCYTES # (AUTO) 0.9 10^3/uL (0.0-1.0); MONOCYTES % (AUTO) 8.2 %; NEUTROPHILS # (AUTO) 7.6 10^3/uL (1.5-6.6); NEUTROPHILS % (AUTO) 67.2 %; PLT - PLATELET COUNT 305 10^3/uL (130-450); RED BLOOD COUNT 4.99 10^6/uL (4.20-5.40); RED CELL DISTRIBUTION WIDTH 14.7 % (12.0-15.0); WHITE BLOOD COUNT 11.3 x10^3/uL (4.8-10.8)
[2019-08-04 19:20] LABS: ALBUMIN/GLOBULIN RATIO 1.1 (1.0-2.2); BILIRUBIN,TOTAL 0.7 mg/dL (0.2-1.0); CALCIUM 8.9 mg/dL (8.5-10.3); CREATININE 1.2 mg/dL (0.4-1.0); TOTAL PROTEIN 7.6 g/dL (6.7-8.2)
== END 2019-08-04 23:59 | disposition home or self-care (01) ==
LOC: LAB.WCP 08:00
PROVIDERS: ATTEND Family Medicine
DX: R10.12 Left upper quadrant pain (principal); Z87.19 Personal history of other diseases of the digestive system
CPT/HCPCS: 36415; 80053; 83690; 85025

== ENCOUNTER 2020-04-04 08:00 | Outpatient (CLI) | payer OTHER, MEDICAID ==
[2020-04-04 17:50] LABS: BASOPHILS # (AUTO) 0.1 10^3/uL (0.0-0.1); BASOPHILS % (AUTO) 1.1 %; EOSINOPHILS # (AUTO) 0.2 10^3/uL (0.0-0.7); HGB - HEMOGLOBIN 14.7 g/dL (12.0-16.0); LYMPHOCYTES # (AUTO) 2.9 10^3/uL (1.5-3.5); LYMPHOCYTES % (AUTO) 23.9 %; MEAN CORPUSCULAR HEMOGLOBIN 29.6 pg (27.0-31.0); MEAN CORPUSCULAR HGB CONC 31.2 g/dL (32.0-36.0); MEAN CORPUSCULAR VOLUME 94.8 fL (81.0-99.0); MEAN PLATELET VOLUME 11.6 fL (7.9-10.8); MONOCYTES # (AUTO) 1.1 10^3/uL (0.0-1.0); MONOCYTES % (AUTO) 8.7 %; NEUTROPHILS # (AUTO) 7.8 10^3/uL (1.5-6.6); NEUTROPHILS % (AUTO) 63.6 %; PLT - PLATELET COUNT 318 10^3/uL (130-450); RED BLOOD COUNT 4.97 10^6/uL (4.20-5.40); RED CELL DISTRIBUTION WIDTH 14.6 % (12.0-15.0); WHITE BLOOD COUNT 12.3 x10^3/uL (4.8-10.8)
[2020-04-04 18:03] LABS: HB2 TOTAL 15.1 g/dL; HEMOGLOBIN A1C 0.61 g/dL; HEMOGLOBIN A1C % 5.8 % (4.6-6.2)
[2020-04-04 18:12] LABS: CHOL/HDL RATIO 5.7 (<4.4); CHOLESTEROL 249 mg/dL; HDL CHOLESTEROL 44 mg/dL; LDL CHOLESTEROL,CALCULATED 159 mg/dL; LDL/HDL RATIO 3.6 (<4.4); LIPASE 35 U/L (22-51); VLDL CHOLESTEROL 46 mg/dL
[2020-04-04 18:13] LABS: ALBUMIN 4.1 g/dL (3.2-5.5); ALBUMIN/GLOBULIN RATIO 1.3 (1.0-2.2); BILIRUBIN,TOTAL 0.5 mg/dL (0.2-1.0); CREATININE 1.1 mg/dL (0.4-1.0); CRP - C-REACTIVE PROTEIN < 1.0 mg/dL (0-1.0); TOTAL PROTEIN 7.3 g/dL (6.7-8.2)
== END 2020-04-04 23:59 | disposition home or self-care (01) ==
LOC: LAB.WCP 08:00
PROVIDERS: ATTEND Family Medicine
DX: E88.81 Metabolic syndrome and other insulin resistance (principal); E78.5 Hyperlipidemia, unspecified; Z87.19 Personal history of other diseases of the digestive system; R76.8 Other specified abnormal immunological findings in serum
CPT/HCPCS: 36415; 80053; 80061; 83036; 83690; 83721; 84443; 85025; 85651; 86140

== ENCOUNTER 2020-07-31 08:00 | Outpatient (CLI) | payer MEDICAID, OTHER ==
[2020-07-31 18:39] LABS: BASOPHILS # (AUTO) 0.1 10^3/uL (0.0-0.1); EOSINOPHILS # (AUTO) 0.7 10^3/uL (0.0-0.7); EOSINOPHILS % (AUTO) 4.8 %; LYMPHOCYTES # (AUTO) 3.2 10^3/uL (1.5-3.5); LYMPHOCYTES % (AUTO) 22.2 %; MEAN CORPUSCULAR HEMOGLOBIN 28.8 pg (27.0-31.0); MEAN CORPUSCULAR HGB CONC 29.9 g/dL (32.0-36.0); MEAN CORPUSCULAR VOLUME 96.3 fL (81.0-99.0); MEAN PLATELET VOLUME 11.2 fL (7.9-10.8); MONOCYTES # (AUTO) 1.1 10^3/uL (0.0-1.0); MONOCYTES % (AUTO) 7.8 %; NEUTROPHILS # (AUTO) 9.1 10^3/uL (1.5-6.6); NEUTROPHILS % (AUTO) 63.4 %; PLT - PLATELET COUNT 325 10^3/uL (130-450); RED BLOOD COUNT 4.86 10^6/uL (4.20-5.40); RED CELL DISTRIBUTION WIDTH 14.6 % (12.0-15.0); WHITE BLOOD COUNT 14.3 x10^3/uL (4.8-10.8)
== END 2020-07-31 23:59 | disposition home or self-care (01) ==
LOC: LAB.WCP 08:00
PROVIDERS: ATTEND Family Medicine
DX: D72.829 Elevated white blood cell count, unspecified (principal)
CPT/HCPCS: 36415; 85025

== ENCOUNTER 2020-09-09 08:00 | Outpatient (CLI) | payer MEDICAID ==
[2020-09-09 17:59] LABS: BASOPHILS # (AUTO) 0.1 10^3/uL (0.0-0.1); BASOPHILS % (AUTO) 1.1 %; EOSINOPHILS # (AUTO) 0.4 10^3/uL (0.0-0.7); EOSINOPHILS % (AUTO) 3.2 %; HGB - HEMOGLOBIN 14.4 g/dL (12.0-16.0); LYMPHOCYTES # (AUTO) 2.3 10^3/uL (1.5-3.5); LYMPHOCYTES % (AUTO) 21.1 %; MEAN CORPUSCULAR HEMOGLOBIN 28.5 pg (27.0-31.0); MEAN CORPUSCULAR HGB CONC 30.1 g/dL (32.0-36.0); MEAN CORPUSCULAR VOLUME 94.9 fL (81.0-99.0); MEAN PLATELET VOLUME 11.8 fL (7.9-10.8); MONOCYTES # (AUTO) 0.9 10^3/uL (0.0-1.0); MONOCYTES % (AUTO) 8.1 %; NEUTROPHILS # (AUTO) 7.3 10^3/uL (1.5-6.6); NEUTROPHILS % (AUTO) 65.9 %; PLT - PLATELET COUNT 292 10^3/uL (130-450); RED BLOOD COUNT 5.05 10^6/uL (4.20-5.40); RED CELL DISTRIBUTION WIDTH 14.7 % (12.0-15.0)
[2020-09-09 18:11] LABS: ALBUMIN 3.9 g/dL (3.2-5.5); ALBUMIN/GLOBULIN RATIO 1.1 (1.0-2.2); ALKALINE PHOSPHATASE 61 IU/L (42-121); ALT ALANINE AMINOTRANSFERASE 51 IU/L (10-60); AST ASPARTATE AMINOTRANSFERASE 38 IU/L (10-42); BILIRUBIN,TOTAL 0.5 mg/dL (0.2-1.0); BUN - BLOOD UREA NITROGEN 14 mg/dL (6-20); CALCIUM 8.8 mg/dL (8.5-10.3); CARBON DIOXIDE - CO2 20 mmol/L (21-32); CHLORIDE 105 mmol/L (101-111); CHOL/HDL RATIO 5.6 (<4.4); CHOLESTEROL 224 mg/dL; CREATININE 0.9 mg/dL (0.4-1.0); GLUCOSE 88 mg/dL (70-100); HDL CHOLESTEROL 40 mg/dL; LDL CHOLESTEROL,CALCULATED 136 mg/dL; LDL/HDL RATIO 3.4 (<4.4); SODIUM 136 mmol/L (135-145); TOTAL PROTEIN 7.3 g/dL (6.7-8.2); VLDL CHOLESTEROL 48 mg/dL
== END 2020-09-09 23:59 | disposition home or self-care (01) ==
LOC: LAB.WCP 08:00
PROVIDERS: ATTEND Physician Assistant
DX: Z79.899 Other long term (current) drug therapy (principal)
CPT/HCPCS: 36415; 80053; 80061; 83721; 85025

== ENCOUNTER 2021-04-08 17:34 | Outpatient (CLI) | payer MEDICAID, OTHER ==
--- NOTE | 2021-04-09 15:29 | XRAY Report ---
PROCEDURE: Knee 3 View LT INDICATIONS: KNEE JOINT PAIN, LEFT TECHNIQUE: 3 views of the left knee(s) were acquired. COMPARISON: None. FINDINGS: Bones: No fractures or dislocations. No suspicious bony lesions. Mild to moderate lateral and cruz lofemoral compartment osteophytes arthritis. Mild medial compartment arthritis. Soft tissues: No joint effusion. No suspicious soft tissue calcifications. IMPRESSION: Tricompartmental osteoarthritis. Reviewed by: Melissa Zamora MD, PhD on 04/09/2021 3:27 PM PDT Approved by: Melissa Zamora MD, PhD on 04/09/2021 3:27 PM PDT Station ID: [id number]
== END 2021-04-08 23:59 | disposition home or self-care (01) ==
LOC: DI.N 17:34
PROVIDERS: ATTEND Physician Assistant Medical
DX: M17.12 Unilateral primary osteoarthritis, left knee (principal)

== ENCOUNTER 2021-06-06 08:00 | Outpatient (CLI) | payer MEDICAID ==
[2021-06-06 17:37] LABS: BASOPHILS # (AUTO) 0.1 10^3/uL (0.0-0.1); BASOPHILS % (AUTO) 1.1 %; EOSINOPHILS # (AUTO) 0.5 10^3/uL (0.0-0.7); EOSINOPHILS % (AUTO) 4.2 %; HGB - HEMOGLOBIN 14.3 g/dL (12.0-16.0); LYMPHOCYTES # (AUTO) 2.8 10^3/uL (1.5-3.5); LYMPHOCYTES % (AUTO) 24.6 %; MEAN CORPUSCULAR HEMOGLOBIN 28.7 pg (27.0-31.0); MEAN CORPUSCULAR HGB CONC 30.4 g/dL (32.0-36.0); MEAN CORPUSCULAR VOLUME 94.2 fL (81.0-99.0); MEAN PLATELET VOLUME 12.2 fL (7.9-10.8); MONOCYTES % (AUTO) 8.3 %; NEUTROPHILS % (AUTO) 61.1 %; PLT - PLATELET COUNT 259 10^3/uL (130-450); RED BLOOD COUNT 4.99 10^6/uL (4.20-5.40); RED CELL DISTRIBUTION WIDTH 15.3 % (12.0-15.0); WHITE BLOOD COUNT 11.4 x10^3/uL (4.8-10.8)
[2021-06-06 17:58] LABS: ALBUMIN/GLOBULIN RATIO 1.2 (1.0-2.2); ALKALINE PHOSPHATASE 67 IU/L (42-121); ALT ALANINE AMINOTRANSFERASE 45 IU/L (10-60); AST ASPARTATE AMINOTRANSFERASE 41 IU/L (10-42); BILIRUBIN,TOTAL 0.6 mg/dL (0.2-1.0); BUN - BLOOD UREA NITROGEN 14 mg/dL (6-20); CARBON DIOXIDE - CO2 22 mmol/L (21-32); CHLORIDE 103 mmol/L (101-111); CHOL/HDL RATIO 5.5 (<4.4); CHOLESTEROL 251 mg/dL; CREATININE 0.9 mg/dL (0.4-1.0); GFR - MDRD 68 (>89); GLUCOSE 125 mg/dL (70-100); HDL CHOLESTEROL 46 mg/dL; LDL CHOLESTEROL,CALCULATED 152 mg/dL; LDL/HDL RATIO 3.3 (<4.4); MAGNESIUM 1.9 mg/dL (1.7-2.8); POTASSIUM 4.4 mmol/L (3.5-5.0); SODIUM 136 mmol/L (135-145); TOTAL PROTEIN 7.4 g/dL (6.7-8.2); TRIGLYCERIDES 265 mg/dL; VLDL CHOLESTEROL 53 mg/dL
[2021-06-06 18:23] LABS: THYROID STIMULATING HORMONE 2.72 uIU/mL (0.34-5.60)
== END 2021-06-06 23:59 | disposition home or self-care (01) ==
LOC: LAB.WCP 08:00
PROVIDERS: ATTEND Family Medicine
DX: Z00.00 Encounter for general adult medical examination without abnormal findings (principal); N18.9 Chronic kidney disease, unspecified
CPT/HCPCS: 36415; 80048; 80053; 80061; 83721; 83735; 84443; 85025

== ENCOUNTER 2021-07-21 13:44 | Outpatient (CLI) | payer MEDICAID ==
[2021-07-21 18:05] LABS: BILIRUBIN,URINE NEGATIVE (NEGATIVE); GLUCOSE, URINE (UA) NEGATIVE (NEGATIVE); KETONES,URINE (UA) NEGATIVE (NEGATIVE); LEUKOCYTE ESTERASE, URINE NEGATIVE (NEGATIVE); NITRITE,URINE NEGATIVE (NEGATIVE); OCCULT BLOOD,URINE NEGATIVE (NEGATIVE); PH,URINE 5.5 PH (5.0-7.5); PROTEIN,URINE NEGATIVE (NEGATIVE); UROBILINOGEN,URINE 0.2 (NORMAL) E.U./dL (NORMAL)
[2021-07-21 18:13] LABS: BACTERIA,URINE Few /HPF (None Seen); CLARITY,URINE CLEAR (CLEAR); RBC,URINE None Seen /HPF (0-5); SQUAMOUS EPITHELIAL CELL,UR MANY Squamous (<= Few); WBC,URINE 0-3 /HPF (0-5)
[2021-07-21 18:23] LABS: CREATININE,URINE 38.2 mg/dL
[2021-07-21 18:38] LABS: MICROALBUMIN,URINE < 0.2 mg/dL (0-300.0)
== END 2021-07-21 23:59 | disposition home or self-care (01) ==
LOC: LAB.WCP 13:44
PROVIDERS: ATTEND Family Medicine
DX: E88.81 Metabolic syndrome and other insulin resistance (principal); N18.9 Chronic kidney disease, unspecified; E78.5 Hyperlipidemia, unspecified; M17.11 Unilateral primary osteoarthritis, right knee; K58.9 Irritable bowel syndrome, unspecified; M79.7 Fibromyalgia; F43.10 Post-traumatic stress disorder, unspecified
CPT/HCPCS: 81001; 82043; 82570

== ENCOUNTER 2021-11-25 09:43 | Outpatient (CLI) | payer MEDICAID ==
--- NOTE | 2021-11-25 16:55 | XRAY Report ---
PROCEDURE: Knee 4 View LT INDICATIONS: ARTHRITIS, LEFT KNEE, SCOLOSIS TECHNIQUE: 4 views of the left knee(s) were acquired. COMPARISON: 04/08/2021 plain filmsFINDINGS: Bones: No fractures or dislocations. Superolateral subluxation of the patella. No suspicious bony l esions. Moderate tricompartmental periarticular osteophyte formation. Soft tissues: No joint effusion. No suspicious soft tissue calcifications. IMPRESSION: 1. Osteoarthritis. 2. Patellar subluxation. 3. No acute fracture. No osseous lesion. If symptoms and/or clinical suspicion for pathology continue , further assessment with repeat plain films, or advanced imaging (e.g., CT, MRI, or bone scan) is re commended for further assessment. Reviewed by: Jesús Craig MD on 11/25/2021 4:54 PM PST Approved by: Jesús Craig MD on 11/25/2021 4:54 PM PST Station ID: [id number]
== END 2021-11-25 09:44 | disposition home or self-care (01) ==
LOC: DI 09:43
PROVIDERS: ATTEND Family Medicine
DX: M17.12 Unilateral primary osteoarthritis, left knee (principal); S83.012A Lateral subluxation of left patella, initial encounter

== ENCOUNTER 2021-11-25 09:50 | Outpatient (CLI) | payer MEDICAID ==
--- NOTE | 2021-11-26 11:39 | Mammography Report ---
BILATERAL DIGITAL DIAGNOSTIC MAMMOGRAM 3D/2D: 11/25/2021 CLINICAL: Palpable left breast lump. Comparison is made to exams dated: 12/07/2018 mammogram, 04/23/2017 mammogram - [facility], 09/04/2015 ultrasound, and 09/04/2015 mammogram - [facility]. The tissue of b oth breasts is heterogeneously dense. This may lower the sensitivity of mammography. No significant masses, calcifications, or other findings are seen in either breast. IMPRESSION: INCOMPLETE: NEEDS ADDITIONAL IMAGING EVALUATION There are no abnormalities seen in the left breast to correspond with the palpable abnormalities at 1 1 and 12 o'clock in the middle depth, however, ultrasound is recommended. There is no abnormality seen in the left breast to correspond with the pain in the sub-areolar depth, however, ultrasound is recommended. Ultrasound will be performed immediately following the current exam. This exam was interpreted at Station ID: [id number]. NOTE: For mammograms, a report in lay terms will be sent to the patient. Approximately 15% of breast malignancies will not be visualized mammographically. In the management of a palpable breast mass, a negative mammogram must not discourage biopsy of a clinically suspicious lesion. Electronically Signed By: Humberto Beasley M.D. ddp/:11/25/2021 12:03:35 ACR BI-RADS Category 0: Incomplete 3340F PARENCHYMAL PATTERN: (D) - The breast(s) demonstrate(s) heterogeneously dense fibroglandular bethanie tomas. BI-RADS CATEGORY: (0) - 0 Ultrasound [id number] Immediate follow-up LATERALITY: (B)
--- NOTE | 2021-11-26 11:39 | Ultrasound Report ---
LIMITED ULTRASOUND OF LEFT BREAST: 11/25/2021 CLINICAL: Left nipple pain. Palpable left breast lump. Comparison is made to exams dated: 11/25/2021 mammogram, 12/07/2018 mammogram, 04/23/2017 mammogram - [facility], 09/04/2015 ultrasound, and 09/04/2015 mammogram - [facility]. Real-time ultrasound of the left breast 11 o'clock, and retroareolar regions was performed on the ar eas of interest. Perez scale images of the real-time examination were reviewed. No discrete cystic or solid mass lesion identified in the area of palpable abnormality at 11 o'clock. No discrete cystic or solid mass lesion identified in the area of focal nipple pain. IMPRESSION: NEGATIVE There is no sonographic evidence of malignancy. There is no abnormality seen in the left breast to correspond with the palpable abnormality at 11 o'c lock, however, clinical followup is recommended. There is no abnormality seen in the left breast to correspond with the pain in the sub-areolar depth , however, clinical followup is recommended. A 1 year screening mammogram is recommended. This exam was interpreted at Station ID: [id number]. Electronically Signed By: Humberto Beasley M.D. ddp/:11/25/2021 13:01:22 Ultrasound BI-RADS: 1 Negative BI-RADS CATEGORY: (1) - 1 RECOMMENDATION: (ANNUAL) - Recommend routine annual screening mammography. [id number] 1 year screening LATERALITY: (B)
== END 2021-11-25 09:51 | disposition home or self-care (01) ==
LOC: DI 09:50
PROVIDERS: ATTEND Family Medicine
DX: N63.20 Unspecified lump in the left breast, unspecified quadrant (principal); R92.8 Other abnormal and inconclusive findings on diagnostic imaging of breast; M17.12 Unilateral primary osteoarthritis, left knee; S83.012A Lateral subluxation of left patella, initial encounter

== ENCOUNTER 2022-01-12 13:11 | Outpatient (CLI) | payer MEDICAID ==
--- NOTE | 2022-01-12 15:10 | XRAY Report ---
PROCEDURE: Spine Entire AP/LAT INDICATIONS: Chronic back pain TECHNIQUE: AP and lateral views of the spine COMPARISON: None. FINDINGS: SPINE: No acute, displaced fracture or retropulsion. The vertebral body heights are maintained. No si gnificant spinal curvature is appreciated. Mild to moderate degenerative change of the lower cervical spine with endplate osteophytosis and face t arthrosis. Facet arthrosis at L5-S1, causing neural foraminal narrowing. SOFT TISSUES: No prevertebral soft tissue thickening. IMPRESSION: 1. No significant abnormality. Reviewed by: Faisal Alvarenga MD on 01/12/2022 3:08 PM [facility] Approved by: Faisal Alvarenga MD on 01/12/2022 3:08 PM [facility] Station ID: [id number]
== END 2022-01-12 13:12 | disposition home or self-care (01) ==
LOC: DI.N 13:11
PROVIDERS: ATTEND Family Medicine
DX: M41.9 Scoliosis, unspecified (principal); N18.9 Chronic kidney disease, unspecified; E88.81 Metabolic syndrome and other insulin resistance
CPT/HCPCS: 36415; 80053; 80061; 83036; 83721; 85025

== ENCOUNTER 2022-01-12 13:41 | Outpatient (CLI) | payer MEDICAID ==
[2022-01-12 19:09] LABS: BASOPHILS # (AUTO) 0.1 10^3/uL (0.0-0.1); BASOPHILS % (AUTO) 0.9 %; EOSINOPHILS # (AUTO) 0.3 10^3/uL (0.0-0.7); EOSINOPHILS % (AUTO) 2.1 %; HCT - HEMATOCRIT 48.3 % (37.0-47.0); HGB - HEMOGLOBIN 15.6 g/dL (12.0-16.0); LYMPHOCYTES # (AUTO) 2.5 10^3/uL (1.5-3.5); LYMPHOCYTES % (AUTO) 21.5 %; MEAN CORPUSCULAR HEMOGLOBIN 29.1 pg (27.0-31.0); MEAN CORPUSCULAR HGB CONC 32.3 g/dL (32.0-36.0); MEAN CORPUSCULAR VOLUME 90.1 fL (81.0-99.0); MONOCYTES % (AUTO) 8.9 %; NEUTROPHILS # (AUTO) 7.7 10^3/uL (1.5-6.6); NEUTROPHILS % (AUTO) 65.6 %; PLT - PLATELET COUNT 281 10^3/uL (130-450); RED BLOOD COUNT 5.36 10^6/uL (4.20-5.40); RED CELL DISTRIBUTION WIDTH 13.9 % (12.0-15.0); WHITE BLOOD COUNT 11.7 x10^3/uL (4.8-10.8)
[2022-01-12 19:48] LABS: ALBUMIN 4.7 g/dL (3.2-5.5); ALBUMIN/GLOBULIN RATIO 1.5 (1.0-2.2); ALKALINE PHOSPHATASE 106 IU/L (42-121); ALT ALANINE AMINOTRANSFERASE 46 IU/L (10-60); AST ASPARTATE AMINOTRANSFERASE 31 IU/L (10-42); BILIRUBIN,TOTAL 0.5 mg/dL (0.2-1.0); BUN - BLOOD UREA NITROGEN 12 mg/dL (6-20); CALCIUM 9.2 mg/dL (8.5-10.3); CARBON DIOXIDE - CO2 24 mmol/L (21-32); CHLORIDE 96 mmol/L (101-111); CHOL/HDL RATIO 5.4 (<4.4); CHOLESTEROL 177 mg/dL; CREATININE 0.9 mg/dL (0.4-1.0); GFR - MDRD 67 (>89); GLUCOSE 396 mg/dL (70-100); HDL CHOLESTEROL 33 mg/dL; POTASSIUM 4.1 mmol/L (3.5-5.0); SODIUM 133 mmol/L (135-145); TOTAL PROTEIN 7.8 g/dL (6.7-8.2); TRIGLYCERIDES 427 mg/dL
[2022-01-12 20:37] LABS: ESTIMATED AVERAGE GLUCOSE 326 mg/dL (70-100)
[2022-01-12 20:44] LABS: LDL CHOLESTEROL,DIRECT 80 mg/dL; LDLD/HDL RATIO 2.4 (<4.4)
== END 2022-01-12 13:42 | disposition home or self-care (01) ==
LOC: LAB.N 13:41
PROVIDERS: ATTEND Family Medicine
DX: N18.9 Chronic kidney disease, unspecified (principal); E88.81 Metabolic syndrome and other insulin resistance
CPT/HCPCS: 36415; 80053; 80061; 83036; 83721; 85025

== ENCOUNTER 2023-03-16 08:11 | Outpatient (CLI) | payer MEDICAID ==
[2023-03-16 11:55] LABS: BASOPHILS # (AUTO) 0.2 10^3/uL (0.0-0.1); BASOPHILS % (AUTO) 1.1 %; EOSINOPHILS # (AUTO) 0.5 10^3/uL (0.0-0.7); EOSINOPHILS % (AUTO) 3.3 %; HCT - HEMATOCRIT 47.7 % (37.0-47.0); HGB - HEMOGLOBIN 14.9 g/dL (12.0-16.0); LYMPHOCYTES # (AUTO) 3.3 10^3/uL (1.5-3.5); LYMPHOCYTES % (AUTO) 22.6 %; MEAN CORPUSCULAR HEMOGLOBIN 29.7 pg (27.0-31.0); MEAN CORPUSCULAR HGB CONC 31.2 g/dL (32.0-36.0); MONOCYTES # (AUTO) 1.1 10^3/uL (0.0-1.0); MONOCYTES % (AUTO) 7.5 %; NEUTROPHILS # (AUTO) 9.4 10^3/uL (1.5-6.6); NEUTROPHILS % (AUTO) 64.7 %; PLT - PLATELET COUNT 333 10^3/uL (130-450); RED BLOOD COUNT 5.02 10^6/uL (4.20-5.40); RED CELL DISTRIBUTION WIDTH 14.1 % (12.0-15.0); WHITE BLOOD COUNT 14.5 x10^3/uL (4.8-10.8)
[2023-03-16 12:12] LABS: ALBUMIN 4.2 g/dL (3.2-5.5); ALBUMIN/GLOBULIN RATIO 1.1 (1.0-2.2); ALKALINE PHOSPHATASE 67 IU/L (42-121); ALT ALANINE AMINOTRANSFERASE 89 IU/L (10-60); AST ASPARTATE AMINOTRANSFERASE 85 IU/L (10-42); BILIRUBIN,TOTAL 0.6 mg/dL (0.2-1.0); BUN - BLOOD UREA NITROGEN 17 mg/dL (6-20); CALCIUM 8.8 mg/dL (8.5-10.3); CARBON DIOXIDE - CO2 22 mmol/L (21-32); CHLORIDE 102 mmol/L (101-111); CHOL/HDL RATIO 4.6 (<4.4); CHOLESTEROL 182 mg/dL; CREATININE 0.9 mg/dL (0.4-1.0); GFR - MDRD 67 (>89); GLUCOSE 148 mg/dL (70-100); HDL CHOLESTEROL 40 mg/dL; LDL CHOLESTEROL,CALCULATED 88 mg/dL; LDL/HDL RATIO 2.2 (<4.4); LIPASE 40 U/L (22-51); POTASSIUM 4.9 mmol/L (3.5-5.0); SODIUM 133 mmol/L (135-145); TOTAL PROTEIN 8.1 g/dL (6.7-8.2); TRIGLYCERIDES 271 mg/dL; VLDL CHOLESTEROL 54 mg/dL
[2023-03-16 12:22] LABS: THYROID STIMULATING HORMONE 3.77 uIU/mL (0.34-5.60)
[2023-03-16 12:27] LABS: ESTIMATED AVERAGE GLUCOSE 169 mg/dL (70-100); HEMOGLOBIN A1c% 7.5 % (4.27-6.07)
[2023-03-18 10:48] LABS: PATHOLOGIST SLIDE COMMENTS SEE SEPARATE REPORT
== END 2023-03-16 08:12 | disposition home or self-care (01) ==
LOC: LAB.N 08:11
PROVIDERS: ATTEND Internal Medicine
DX: E11.42 Type 2 diabetes mellitus with diabetic polyneuropathy (principal); Z87.19 Personal history of other diseases of the digestive system; D72.829 Elevated white blood cell count, unspecified; F41.9 Anxiety disorder, unspecified; F32.A Depression, unspecified
CPT/HCPCS: 36415; 80053; 80061; 82043; 82570; 83036; 83690; 83721; 84443; 85025

== ENCOUNTER 2023-03-23 06:19 | Outpatient (CLI) | payer MEDICAID ==
--- NOTE | 2023-03-23 16:49 | Ultrasound Report ---
PROCEDURE: Abdomen Complete INDICATIONS: EPIGASTRIC ABD PAIN TECHNIQUE: Real-time scanning was performed of the abdominal and retroperitoneal organs, with image documentatio n. COMPARISON: None. FINDINGS: Liver: Liver is enlarged measuring 17.7 cm with steatosis. Gallbladder: No stones. Wall thickness is within normal limits measuring 1.9 mm. Biliary ducts: Intrahepatic bile ducts are non-dilated. Extrahepatic bile duct is not well seen.. Normal is 6-7 mm or less in diameter, or 10 mm or less post-cholecystectomy. Pancreas: Visualized portions of the pancreas are sonographically normal. Spleen: Spleen is normal in size and homogeneous in echotexture. Kidneys: Kidneys are normal in size and echotexture. Right kidney measures 12.4 cm long; left kidne y measures 11.9 cm long. No hydronephrosis or nephrolithiasis. No solid masses. No complex renal cy stic lesions which require follow-up. Aorta: Visualized aorta is normal in caliber at less than 3 cm. Iliacs: Proximal common iliac arteries are normal in caliber at less than 2.5 cm. IVC: Intrahepatic inferior vena cava is patent. Miscellaneous: No free abdominal fluid. IMPRESSION: Hepatomegaly with steatosis. Reviewed by: Mayelin Cox MD on 03/23/2023 4:48 PM PDT Approved by: Mayelin Cox MD on 03/23/2023 4:48 PM PDT Station ID: [id number]
== END 2023-03-23 06:20 | disposition home or self-care (01) ==
LOC: DI 06:19
PROVIDERS: ATTEND Internal Medicine
DX: K76.0 Fatty (change of) liver, not elsewhere classified (principal); R10.13 Epigastric pain; R11.0 Nausea

== ENCOUNTER 2023-08-24 08:02 | Emergency (ER) | payer MEDICAID ==
[2023-08-24 08:17] VITALS: BP 101/84; O2SAT 98
--- NOTE | 2023-08-24 08:31 | ED Physician Documentation ---
History of Present Illness - Stated complaint Stated Complaint: THROAT SWELLING - Chief complaint Chief Complaint: General - History obtained from History obtained from: Patient - History of Present Illness Timing: How many weeks ago (2-3) - Additonal information Additional information: 47-year-old female with history of chronic kidney disease, pseudotumor cerebri, IBS, chronic constipation, fibromyalgia presents by private vehicle from home for anterior throat swelling for "weeks". Patient states that this morning she had difficulty swallowing her pills, and since she was here today to get laboratory work for her primary care doctor's appointment on Fridayshe was here decided to be evaluated in the ER as well. No prior medical work-up prior to today.Denies voice changes, drooling, dental pain or infection Review of Systems Constitutional: denies: Fever, Chills Eyes: denies: Loss of vision, Decreased vision, Photophobia, Discharge, Irritation Ears: denies: Loss of hearing, Ear pain, Drainage/discharge, Tinnitus/ringing, Foreign body Throat: reports: Other (throat swelling). 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 THERAPY: None : Other HEENT: Other Psych: Depression, Anxiety Musculoskeletal: Osteoarthritis, Fibromyalgia, Chronic back pain Derm: Rosacea, Other - Past Surgical History Past Surgical History: Yes General: Other /DIRECTOR OF RECREATION THERAPY: Hysterectomy HEENT: Other - Present Medications Home Medications: Ambulatory Orders Medication Instructions Recorded Confirmed Melatonin 5 mg ORAL DAILY PM 04/20/15 08/24/23 Naproxen Sodium [Aleve] 220 mg ORAL DAILY 04/20/15 08/24/23 Topiramate 75 mg ORAL QPM 04/20/15 08/24/23 Dicyclomine [Bentyl] 10 mg PO TID PRN 07/13/17 08/24/23 Guanfacine HCl 2 mg PO QPM PRN 07/13/17 08/24/23 Lubiprostone [Amitiza] 48 mcg PO DAILY 07/13/17 08/24/23 Omeprazole [PriLOSEC] 20 mg PO DAILY 07/13/17 08/24/23 Propranolol [Inderal] 20 mg PO DAILY 07/13/17 08/24/23 buPROPion HCL [Wellbutrin Xl] 300 mg PO DAILY 07/13/17 08/24/23 Meloxicam 15 mg PO DAILY 03/09/19 08/24/23 Escitalopram [Lexapro] 20 mg PO DAILY 05/08/19 08/24/23 Gabapentin 1,600 mg PO BID 05/08/19 08/24/23 busPIRone [Buspar] 15 mg PO DAILY 05/08/19 08/24/23 Glimepiride 1 mg PO DAILY 08/24/23 08/24/23 Omeprazole Magnesium 20 mg PO DAILY 08/24/23 08/24/23 metFORMIN [Glucophage] 500 mg PO BIDWM 08/24/23 08/24/23 oxyBUTYnin chloride [Oxybutynin 5 mg PO BID PRN 08/24/23 08/24/23 Chloride] - Allergies Allergies/Adverse Reactions: Allergies Allergy/AdvReac Type Severity Reaction Status Date / Time No Known Drug Allergies Allergy Verified 08/24/23 08:13 - Social History Does the pt smoke?: No Smoking Status: Never smoker Does the pt drink ETOH?: No Does the pt have substance abuse?: No - Immunizations Immunizations are current?: Yes - POLST Patient has POLST: No PD ED PE NORMAL - Vitals Vital signs reviewed: Yes - General General: Alert and oriented X 3, No acute distress, Well developed/nourished, Other (obese) - HEENT HEENT: Atraumatic, PERRL, Other (mallampati 3, ) - Neck Neck: Supple, no meningeal sign, No bony TTP, No adenopathy, Other (tolerating secretions, no tongue elevation) - Cardiac Cardiac: RRR - Abdomen Abdomen: Soft - Derm Derm: Normal color, Warm and dry, No rash - Extremities Extremities: No deformity, No tenderness to palpate, Normal ROM s pain, No edema - Neuro Neuro: Alert and oriented X 3, 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, No motor deficit, Normal speech - Psych Psych: Normal mood, Normal affect Results - Vitals Vitals: Vital Signs - 24 hr 08/24/23 08:14 Temperature 36.4 C L Heart Rate 98 Respiratory 18 Rate Blood Pressure 101/84 H O2 Saturation 98 Oxygen O2 Source Room air - Labs Labs: Laboratory Tests 08/24/23 08/24/23 08/24/23 08:45 08:45 10:25 WBC 11.9 H RBC 4.90 Hgb 14.8 Hct 45.5 MCV 92.9 MCH 30.2 MCHC 32.5 RDW 14.3 Plt Count 312 MPV 10.8 Neut # (Auto) 7.4 H Lymph # (Auto) 2.8 [place] # (Auto) 1.1 H Eos # (Auto) 0.5 Baso # (Auto) 0.1 Absolute Nucleated RBC 0.00 Nucleated RBC % 0.0 Sodium 135 Potassium 4.1 Chloride 102 Carbon Dioxide 23 Anion Gap 10.0 BUN 15 Creatinine 0.9 Estimated GFR (MDRD) 67 L Glucose 165 H Calcium 9.2 Total Bilirubin 0.5 AST 75 H ALT 85 H Alkaline Phosphatase 65 Total Protein 7.1 Albumin 4.4 Globulin 2.7 Albumin/Globulin Ratio 1.6 TSH 3.59 Urine HCG, Qual NEGATIVE PD Medical Decision Making - ED course Complexity details: reviewed old records, reviewed results, re-evaluated patient, considered differential, d/w patient ED course: Nontoxic-appearing patient with several weeks of reported throat swelling. No drooling, no pooling of secretions, no voice changes per patient. Dentition otherwise benign. Laboratory work is unremarkable. CT neck soft tissue shows no acute process, there is mild increase in size of the thyroid without nodules. Patient was counseled of all lab and imaging findings at bedside. She already has scheduled follow-up with her primary care physician at the end of the week. Patient expressed understanding of the plan and is in agreement at this time. All questions answered at time of discharge. Departure - Departure Disposition: 01 Home, Self Care Clinical Impression: Throat swelling, Abnormal CT scan, neck Condition: Stable Instructions: Thyroid Probs Tx Comments: Your CT scan today showed a mildly enlarged thyroid without nodules. Your other laboratory work today was normal including thyroid stimulating hormone. Please follow-up with your primary care physician for any additional testing Forms: PCP List Discharge Date/Time: 08/24/23 10:55
[2023-08-24 08:49] LABS: BASOPHILS # (AUTO) 0.1 10^3/uL (0.0-0.1); BASOPHILS % (AUTO) 0.9 %; EOSINOPHILS # (AUTO) 0.5 10^3/uL (0.0-0.7); HCT - HEMATOCRIT 45.5 % (37.0-47.0); HGB - HEMOGLOBIN 14.8 g/dL (12.0-16.0); LYMPHOCYTES # (AUTO) 2.8 10^3/uL (1.5-3.5); LYMPHOCYTES % (AUTO) 23.5 %; MEAN CORPUSCULAR HEMOGLOBIN 30.2 pg (27.0-31.0); MEAN CORPUSCULAR HGB CONC 32.5 g/dL (32.0-36.0); MEAN CORPUSCULAR VOLUME 92.9 fL (81.0-99.0); MEAN PLATELET VOLUME 10.8 fL (7.9-10.8); MONOCYTES # (AUTO) 1.1 10^3/uL (0.0-1.0); MONOCYTES % (AUTO) 9.2 %; NEUTROPHILS # (AUTO) 7.4 10^3/uL (1.5-6.6); NEUTROPHILS % (AUTO) 61.9 %; PLT - PLATELET COUNT 312 10^3/uL (130-450); RED CELL DISTRIBUTION WIDTH 14.3 % (12.0-15.0); WHITE BLOOD COUNT 11.9 x10^3/uL (4.8-10.8)
[2023-08-24 09:00] LABS: ALBUMIN 4.4 g/dL (3.2-5.5); ALBUMIN/GLOBULIN RATIO 1.6 (1.0-2.2); BILIRUBIN,TOTAL 0.5 mg/dL (0.2-1.0); CALCIUM 9.2 mg/dL (8.5-10.3); CREATININE 0.9 mg/dL (0.6-1.3); POTASSIUM 4.1 mmol/L (3.5-4.5); TOTAL PROTEIN 7.1 g/dL (6.4-8.9)
[2023-08-24 09:15] LABS: THYROID STIMULATING HORMONE 3.59 uIU/mL (0.34-5.60)
[2023-08-24] MEDS ORDERED: iohexoL-300 100 ML VIAL IVP ONE (09:57)
--- NOTE | 2023-08-24 10:25 | CT Report ---
PROCEDURE: SOFT TISSUE NECK W INDICATIONS: ANTERIOR THROAT SWELLING X WEEKS CONTRAST: 100ml omni 300 TECHNIQUE: After the administration of intravenous contrast, 3.0 mm axial sections acquired from the sella to th e aortic arch. Additional oblique axial 3.0 mm sections acquired through the pharynx. 3 mm thick co emily reformats were generated. For radiation dose reduction, the following was used: automated exp osure control, adjustment of mA and/or kV according to patient size. COMPARISON: None. FINDINGS: Image quality: Excellent. Lymph nodes: No enlarged lymph nodes seen throughout the neck. Vessels: Visualized vasculature appears patent. Neck spaces: The oropharynx, nasopharynx, and pharynx demonstrate no mucosal lesions. The vocal cor ds, false vocal cords, pyriform sinuses, epiglottis, vallecula, and tongue base all appear normal. E xtramucosal spaces appear unremarkable. Glands: The parotid and submandibular glands appear normal. The thyroid gland appears mildly promin ent and heterogeneous without focal nodules identified. Miscellaneous: Visualized brain and orbits appear normal. Lung apices appear clear. Superficial so ft tissues appear normal. Bones: No suspicious bony lesions. No acute compression fractures. Multilevel cervical spondylosis. Visualized mastoids appear unremarkable. Bilateral maxillary sinus mucosal thickening versus mucus r etention cyst. IMPRESSION: CT soft tissue neck without acute abnormalities. No suspicious mass lesion. No adenopathy. No evidenc e for abscess formation. Bilateral maxillary sinus disease versus mucous retention cysts. Multilevel cervical spondylosis. CLINICAL RECOMMENDATION STATEMENTS: In patients <35 years with an ITN detected on CT, MRI, or extrathyroidal ultrasound, the Committee re commends further evaluation with dedicated thyroid ultrasound if the nodule is "e1 cm and has no susp icious imaging features, and if the patient has normal life expectancy. In patients "e35 years with an ITN detected on CT, MRI, or extrathyroidal ultrasound, the Committee r ecommends further evaluation with dedicated thyroid ultrasound if the nodule is "e1.5 cm and has no s uspicious imaging features, and if the patient has normal life expectancy. (ACR, 2014) Reviewed by: Tadeo Fitzpatrick MD on 08/24/2023 10:23 AM PDT Approved by: Tadeo Fitzpatrick MD on 08/24/2023 10:23 AM PDT Station ID: [id number]
[2023-08-24 10:48] LABS: HCG UR QUAL NEGATIVE
== END 2023-08-24 10:55 | disposition home or self-care (01) ==
LOC: ED 08:02
DX: R22.1 Localized swelling, mass and lump, neck (principal); E04.9 Nontoxic goiter, unspecified; R79.89 Other specified abnormal findings of blood chemistry; E11.42 Type 2 diabetes mellitus with diabetic polyneuropathy
CPT/HCPCS: 36415; 70491; 80053; 81025; 82728; 83036; 83540; 84443; 84466; 85025; 86704; 86803; 87340; 99283; 99284; Q9967

== ENCOUNTER 2023-08-24 11:04 | Outpatient (CLI) | payer MEDICAID ==
[2023-08-24 12:00] LABS: ESTIMATED AVERAGE GLUCOSE 157 mg/dL (70-100); HEMOGLOBIN A1c% 7.1 % (4.27-6.07)
[2023-08-24 12:06] LABS: FERRITIN 78.1 ng/mL (11.0-306.8)
[2023-08-25 03:09] LABS: HBsAG SCREEN Negative (Negative)
[2023-08-26 00:08] LABS: HCV AB Non Reactive (Non Reactive)
== END 2023-08-24 11:05 | disposition home or self-care (01) ==
LOC: LAB 11:04
PROVIDERS: ATTEND Internal Medicine
DX: R79.89 Other specified abnormal findings of blood chemistry (principal); E11.42 Type 2 diabetes mellitus with diabetic polyneuropathy
CPT/HCPCS: 36415; 82728; 83036; 83540; 84466; 86704; 86803; 87340

== ENCOUNTER 2023-12-15 10:07 | Outpatient (CLI) | payer MEDICAID ==
[2023-12-15 10:25] LABS: BASOPHILS # (AUTO) 0.1 10^3/uL (0.0-0.1); EOSINOPHILS # (AUTO) 0.3 10^3/uL (0.0-0.7); EOSINOPHILS % (AUTO) 2.1 %; HGB - HEMOGLOBIN 13.9 g/dL (12.0-16.0); LYMPHOCYTES # (AUTO) 2.9 10^3/uL (1.5-3.5); LYMPHOCYTES % (AUTO) 22.4 %; MEAN CORPUSCULAR HEMOGLOBIN 29.4 pg (27.0-31.0); MEAN CORPUSCULAR HGB CONC 30.9 g/dL (32.0-36.0); MEAN CORPUSCULAR VOLUME 95.1 fL (81.0-99.0); MEAN PLATELET VOLUME 10.9 fL (7.9-10.8); MONOCYTES # (AUTO) 1.2 10^3/uL (0.0-1.0); NEUTROPHILS # (AUTO) 8.5 10^3/uL (1.5-6.6); PLT - PLATELET COUNT 341 10^3/uL (130-450); RED BLOOD COUNT 4.73 10^6/uL (4.20-5.40); RED CELL DISTRIBUTION WIDTH 14.2 % (12.0-15.0); WHITE BLOOD COUNT 13.1 x10^3/uL (4.8-10.8)
[2023-12-15 10:39] LABS: CREATININE,URINE 158.6 mg/dL; MICROALBUM/CREATININE RATIO,UR 8.8 ug/mg (<30.0); MICROALBUMIN,URINE 1.4 mg/dL
[2023-12-15 10:42] LABS: ALBUMIN 4.3 g/dL (3.2-5.5); ALBUMIN/GLOBULIN RATIO 1.7 (1.0-2.2); ALKALINE PHOSPHATASE 51 IU/L (42-121); ALT ALANINE AMINOTRANSFERASE 35 IU/L (10-60); AST ASPARTATE AMINOTRANSFERASE 25 IU/L (10-42); BILIRUBIN,TOTAL 0.3 mg/dL (0.2-1.0); BUN - BLOOD UREA NITROGEN 17 mg/dL (6-20); CARBON DIOXIDE - CO2 24 mmol/L (21-32); CHLORIDE 104 mmol/L (101-111); CHOL/HDL RATIO 3.6 (<4.4); CHOLESTEROL 148 mg/dL; CREATININE 1.1 mg/dL (0.6-1.3); GFR - MDRD 53 (>89); GLUCOSE 113 mg/dL (74-104); HDL CHOLESTEROL 41 mg/dL; LDL CHOLESTEROL,CALCULATED 61 mg/dL; LDL/HDL RATIO 1.5 (<4.4); POTASSIUM 4.6 mmol/L (3.5-4.5); SODIUM 135 mmol/L (135-145); TOTAL PROTEIN 6.9 g/dL (6.4-8.9); TRIGLYCERIDES 228 mg/dL (48-352); VLDL CHOLESTEROL 46 mg/dL
[2023-12-15 10:56] LABS: THYROID STIMULATING HORMONE 1.88 uIU/mL (0.34-5.60)
[2023-12-15 13:30] LABS: ESTIMATED AVERAGE GLUCOSE 151 mg/dL (70-100); HEMOGLOBIN A1c% 6.9 % (4.27-6.07)
[2023-12-16 18:08] LABS: THYROGLOBULIN ANTIBODY <1.0 IU/mL (0.0-0.9); THYROID PEROXIDASE (TPO) AB <9 IU/mL (0-34)
== END 2023-12-15 10:08 | disposition home or self-care (01) ==
LOC: LAB 10:07
PROVIDERS: ATTEND Internal Medicine
DX: E11.42 Type 2 diabetes mellitus with diabetic polyneuropathy (principal); E04.9 Nontoxic goiter, unspecified; E78.5 Hyperlipidemia, unspecified; R79.89 Other specified abnormal findings of blood chemistry; K58.9 Irritable bowel syndrome, unspecified
CPT/HCPCS: 36415; 80053; 80061; 82043; 82570; 83036; 83721; 84439; 84443; 84481; 85025; 86376; 86800

== ENCOUNTER 2024-07-03 08:11 | Emergency (ER) | payer MEDICAID ==
[2024-07-03 08:36] VITALS: BP 131/93; O2SAT 97
[2024-07-03 08:56] LABS: BASOPHILS # (AUTO) 0.1 10^3/uL (0.0-0.1); BASOPHILS % (AUTO) 0.8 %; EOSINOPHILS # (AUTO) 0.4 10^3/uL (0.0-0.7); EOSINOPHILS % (AUTO) 2.9 %; HCT - HEMATOCRIT 45.7 % (37.0-47.0); LYMPHOCYTES % (AUTO) 24.9 %; MEAN CORPUSCULAR HEMOGLOBIN 29.2 pg (27.0-31.0); MEAN CORPUSCULAR HGB CONC 30.6 g/dL (32.0-36.0); MEAN CORPUSCULAR VOLUME 95.2 fL (81.0-99.0); MEAN PLATELET VOLUME 10.6 fL (7.9-10.8); MONOCYTES # (AUTO) 1.2 10^3/uL (0.0-1.0); MONOCYTES % (AUTO) 9.8 %; NEUTROPHILS # (AUTO) 7.4 10^3/uL (1.5-6.6); NEUTROPHILS % (AUTO) 60.9 %; PLT - PLATELET COUNT 317 10^3/uL (130-450); RED CELL DISTRIBUTION WIDTH 14.2 % (12.0-15.0); WHITE BLOOD COUNT 12.1 x10^3/uL (4.8-10.8)
--- NOTE | 2024-07-03 09:06 | ED Physician Documentation ---
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: Hysterectomy HEENT: Other - Present Medications Home Medications: Ambulatory Orders Medication Instructions Recorded Confirmed Melatonin 5 mg ORAL DAILY PM 04/20/15 08/24/23 Naproxen Sodium [Aleve] 220 mg ORAL DAILY 04/20/15 08/24/23 Topiramate 75 mg ORAL QPM 04/20/15 08/24/23 Dicyclomine [Bentyl] 10 mg PO TID PRN 07/13/17 08/24/23 Guanfacine HCl 2 mg PO QPM PRN 07/13/17 08/24/23 Lubiprostone [Amitiza] 48 mcg PO DAILY 07/13/17 08/24/23 Omeprazole [PriLOSEC] 20 mg PO DAILY 07/13/17 08/24/23 Propranolol [Inderal] 20 mg PO DAILY 07/13/17 08/24/23 buPROPion HCL [Wellbutrin Xl] 300 mg PO DAILY 07/13/17 08/24/23 Meloxicam 15 mg PO DAILY 03/09/19 08/24/23 Escitalopram [Lexapro] 20 mg PO DAILY 05/08/19 08/24/23 Gabapentin 1,600 mg PO BID 05/08/19 08/24/23 busPIRone [Buspar] 15 mg PO DAILY 05/08/19 08/24/23 Glimepiride 1 mg PO DAILY 08/24/23 08/24/23 Omeprazole Magnesium 20 mg PO DAILY 08/24/23 08/24/23 metFORMIN [Glucophage] 500 mg PO BIDWM 08/24/23 08/24/23 oxyBUTYnin chloride [Oxybutynin 5 mg PO BID PRN 08/24/23 08/24/23 Chloride] - Allergies Allergies/Adverse Reactions: Allergies Allergy/AdvReac Type Severity Reaction Status Date / Time No Known Drug Allergies Allergy Verified 07/03/24 08:35 - Social History Does the pt smoke?: No Smoking Status: Never smoker Does the pt drink ETOH?: No Does the pt have substance abuse?: No - Immunizations Immunizations are current?: Yes - POLST Patient has POLST: No Results - Vitals Vitals: Vital Signs - 24 hr 07/03/24 08:32 Temperature 36.7 C Heart Rate 93 Respiratory 20 Rate Blood Pressure 131/93 H O2 Saturation 97 Oxygen O2 Source Room air - Labs Labs: Laboratory Tests 07/03/24 08:51 WBC 12.1 H RBC 4.80 Hgb 14.0 Hct 45.7 MCV 95.2 MCH 29.2 MCHC 30.6 L RDW 14.2 Plt Count 317 MPV 10.6 Neut # (Auto) 7.4 H Lymph # (Auto) 3.0 [place] # (Auto) 1.2 H Eos # (Auto) 0.4 Baso # (Auto) 0.1 Absolute Nucleated RBC 0.00 Nucleated RBC % 0.0 Departure - Departure
[2024-07-03 09:10] LABS: ALBUMIN/GLOBULIN RATIO 1.4 (1.0-2.2); BILIRUBIN,TOTAL 0.3 mg/dL (0.2-1.0); CALCIUM 9.4 mg/dL (8.5-10.3); CREATININE 0.9 mg/dL (0.6-1.3); POTASSIUM 4.8 mmol/L (3.5-4.5); TOTAL PROTEIN 6.9 g/dL (6.4-8.9)
== END 2024-07-03 09:05 | disposition left against medical advice (07) ==
LOC: ED 08:11
DX: Z53.21 Procedure and treatment not carried out due to patient leaving prior to being seen by health care provider (principal)
CPT/HCPCS: 36415; 80053; 83690; 85025

== ENCOUNTER 2024-07-03 08:44 | Outpatient (CLI) | payer MEDICAID ==
[2024-07-03 09:11] LABS: ALBUMIN 4.1 g/dL (3.2-5.5); ALBUMIN/GLOBULIN RATIO 1.5 (1.0-2.2); BILIRUBIN,TOTAL 0.3 mg/dL (0.2-1.0); CALCIUM 9.3 mg/dL (8.5-10.3); CREATININE 0.9 mg/dL (0.6-1.3); POTASSIUM 4.6 mmol/L (3.5-4.5); TOTAL PROTEIN 6.9 g/dL (6.4-8.9)
[2024-07-03 09:26] LABS: THYROID STIMULATING HORMONE 3.65 uIU/mL (0.34-5.60)
[2024-07-03 14:26] LABS: ESTIMATED AVERAGE GLUCOSE 143 mg/dL (70-100); HEMOGLOBIN A1c% 6.6 % (4.27-6.07)
== END 2024-07-03 08:45 | disposition home or self-care (01) ==
LOC: LAB 08:44
PROVIDERS: ATTEND Internal Medicine
DX: E11.42 Type 2 diabetes mellitus with diabetic polyneuropathy (principal); E04.9 Nontoxic goiter, unspecified
CPT/HCPCS: 36415; 80053; 83036; 84443